=== PATIENT | female | born 1950 | race Caucasian/White ===

== ENCOUNTER 2016-12-13 17:14 | Emergency (ER) | payer BC ==
[~2016-12-13 17:14] MED LIST: CALC600T21 PO; COPA1INJ PO; METH2.5TA PO; MULTTAB PO; VALARIAN PO; [UNRECOGNIZED DRUG - OTHER] PO
[2016-12-13 18:59] LABS: CALCIUM OXALATE CRYSTALS SMALL
[2016-12-13] MEDS ORDERED: KETOROLAC 30 MG/ML VIAL (J1885) As Ordered ONE (19:13)
[2016-12-13] MEDS ORDERED: ONDANSETRON 4MG/2ML VIAL (J2405) As Ordered ONE (19:13)
--- NOTE | 2016-12-13 19:20 | REP ---
Clinical: Right-sided pain. Comparison: 10/07/2011. Findings: An 8 mm noncalcified nodule is identified in the periphery of the right lower lobe (image one). Visualized heart and pericardium are normal. Liver, spleen, pancreas, and bilateral adrenal glands are normal for noncontrast evaluation. The patient is status post cholecystectomy. The kidneys demonstrate right cortical scarring, bilateral nonobstructing renal calculi measuring up to 13 mm in the right kidney and 8 mm in left kidney without perinephric stranding, hydroureteronephrosis, or obstructing ureteral calculi. The enteric system is without obstruction. Mild circumferential mural thickening to the rectosigmoid suggest the possibility of colitis. Pelvis demonstrates normal bladder and age-appropriate uterus/adnexa. No ascites. No free air. No obvious adenopathy. Abdominal aorta without aneurysm. Musculoskeletal structures demonstrate degenerative changes without focal osseous abnormality. Impression: 1. Kidneys demonstrate right cortical scarring as well as bilateral nonobstructing calculi without obstructive uropathy. 2. Mural thickening to the rectosigmoid suggesting colitis and requiring correlation. 3. 8 mm noncalcified nodule in the periphery of the right lower lobe represents a new finding compared to [address] CT evaluation. Signed by Mikey Helm MD 12/13/2016 07:11 P
[2016-12-13 19:35] LABS: BASO % 0.5 % (0.0-1.0); EOS # 0.1 K/mm3 (0.0-0.50); EOS % 1.5 % (0.0-3.0); LARGE UNSTAINED CELL # 0.1 K/mm3 (0.0-0.4); LARGE UNSTAINED CELL % 2.2 % (0.0-4.0); LYMPH # 1.6 K/mm3 (1.5-4.5); LYMPH % 30.9 % (24.0-44.0); MEAN CORPUSCULAR HEMOGLOBIN 31.7 pg (27.0-33.0); MEAN CORPUSCULAR HGB CONC 34.7 g/dl (32.0-36.5); MEAN CORPUSCULAR VOLUME 91.4 fl (80.0-96.0); MONO # 0.3 K/mm3 (0.0-0.8); MONO % 5.9 % (0.0-5.0); NEUTROPHILS # 2.8 K/mm3 (1.8-7.7); PLATELET COUNT, AUTOMATED 281 k/mm3 (150-450); RED CELL DISTRIBUTION WIDTH 12.7 % (11.5-14.5); WHITE BLOOD COUNT 4.8 K/mm3 (4.0-10.0)
[2016-12-13] MEDS ORDERED: LevoFLOXacin/DEXTROSE 750 MG/150 ML BAG (J1956) As Ordered ONE (19:49)
[2016-12-13 19:50] LABS: ALBUMIN 4.3 GM/DL (3.2-5.2); ALBUMIN/GLOBULIN RATIO 1.39 (1.00-1.93); ALKALINE PHOSPHATASE 102 U/L (45-117); ALT/SGPT 24 U/L (12-78); ANION GAP 8 MEQ/L (8-16); AST/SGOT 16 U/L (15-37); BILIRUBIN,DIRECT < 0.1 MG/DL (0.0-0.2); BILIRUBIN,TOTAL 0.5 MG/DL (0.2-1.0); BLOOD UREA NITROGEN 17 MG/DL (7-18); CALCIUM LEVEL 9.5 MG/DL (8.8-10.2); CARBON DIOXIDE LEVEL 31 MEQ/L (21-32); CHLORIDE LEVEL 103 MEQ/L (98-107); CREATININE FOR GFR 0.73 MG/DL (0.55-1.02); GLOMERULAR FILTRATION RATE > 60.0 (>45); GLUCOSE, FASTING 97 MG/DL (80-110); POTASSIUM SERUM 3.8 MEQ/L (3.5-5.1); SODIUM LEVEL 142 MEQ/L (136-145); TOTAL PROTEIN 7.4 GM/DL (6.4-8.2)
[2016-12-13] MEDS ORDERED: ISOVUE-370 76% 100ML VIAL (Q9967) As Ordered ONE (20:30)
--- NOTE | 2016-12-13 21:30 | REPUSA ---
CLINICAL HISTORY: Lung nodule. TECHNIQUE: Multiple axial CT images were obtained through chest with IV contrast material. MPR fields l and sagittal sequences were obtained. COMMENTS: 6 mm right lower lobe nodule is noted. Left lower lobe scarring is seen. There is no evidence of pleural or parenchymal mass. There are no pleural effusions. There is no evid ence of hilar or mediastinal lymphadenopathy. The heart and great vessels are within normal limits. The visualized portions of the liver are of uniform attenuation without mass or defect. There is no i ntra or extrahepatic biliary ductal dilatation. The spleen is unremarkable. The visualized pancreas i s of normal contour and attenuation characteristics. There is no evidence of adrenal mass. The visual ized portions of the kidneys present no abnormalities. The bony structures are free of lytic or blastic lesions. Multilevel degenerative changes are seen in volving the thoracic spine. Scattered calcifications are seen involving the aorta and visualized gladis r branches compatible with atherosclerosis. No evidence for abnormal enhancement. IMPRESSION: 6 mm right lower lobe nodule. Comparison with prior studiies and establishing 2 year interval of sta bility is recommended. Consider short-term follow-up in 6 months as clinically warranted. No evidence of acute thoracic pathology. Thank you for your kind referral of this patient.
--- NOTE | 2016-12-13 21:50 | EDDOCDS ---
Physician Documentation [facility] Name: Addie Yanez Age: 66 yrs Sex: Female : 1950 Arrival Date: 12/13/2016 Time: 17:14 Bed I5 / M5 Private MD: Rob Giraldo M.D. Disposition: 12/13/16 21:36 Discharged to Home/Self Care. Impression: Urinary tract infection, site not specified - right pyelonephritis, Solitary pulmonary nodule - right lower lobe, 6mm. - Condition is Stable. - Discharge Instructions: Urinary Tract Infection, Antibiotic Use, [id number], Pulmonary Nodule. - Prescriptions for Cipro 500 mg Oral Tablet - take 1 tablet by ORAL route every 12 hours; 14 tablet. ZOFRAN ODT 4 mg - dissolve 1 tablet by ORAL route 4 times per day As needed do not chew, do not swallow whole; 10 tablet. - Medication Reconciliation, Local Pharmacy Hours form. - Follow up: Rbo Giraldo; When: Call to arrange an appointment; Reason: Recheck today's complaints, Continuance of care. - Problem is new. - Symptoms are unchanged. Historical: - Allergies: PENICILLINS; SULFA (SULFONAMIDES); - Home Meds: 1. methotrexate sodium 10 mg Oral tab 1 tab once wkly 2. Copaxone 40 mg/mL subcutaneous syrg 3 times per wk - PMHx: MS; Kidney stones; - PSHx: kidney stone removal; Cholecystectomy; vein stripping in left leg; Lithotripsy; - Social history: Smoking status: Patient states former smoker of tobacco. No barriers to communication noted, The patient speaks fluent Yakut, Speaks appropriately for age. - Family history: Not pertinent. - : The pt / caregiver states he / she is not on anticoagulants. Home medication list is obtained from the patient. - Exposure Risk Screening:: None identified. Vital Signs: 12/13 17:16 BP 128 / 64; Pulse 84; Resp 16; Temp 97.4(O); Pulse Ox 97% ; Weight 54.43 kg / 120 lbs; cmb Height 5 ft. 3 in. (160.02 cm); Pain 6/10; 21:40 BP 123 / 67; Pulse 89; Resp 18; Temp 98.0; Pulse Ox 98% ; Pain 3/10; ajs 17:16 Body Mass Index 21.26 (54.43 kg, 160.02 cm) cmb MDM: 18:38 NS 0.9% 1000 ml IV at bolus once ordered. mo1 18:38 Ondansetron 4 mg IVP once ordered. mo1 18:38 ketorolac 30 mg IVP once ordered. mo1 18:38 IV Saline Lock ordered. mo1 18:38 Undress patient appropriately for examination ordered. mo1 18:39 Basic Metabolic Profile Ordered. EDMS 18:39 CBC with Diff Ordered. EDMS 18:39 Lipase Ordered. EDMS 18:39 Liver Profile Ordered. EDMS 18:39 Urinalysis Ordered. EDMS 18:39 Urine Culture Ordered. EDMS 18:39 CT ABD & PELVIS: No Contrast Ordered. EDMS 18:39 NOTHING BY MOUTH+DIET ordered. EDMS 18:53 Financial registration complete. ks16 19:09 [facility] Payment Agreement was scanned into [employer] and attached to record. ks16 19:20 Urinalysis Reviewed. mo1 19:31 CT ABD & PELVIS: No Contrast Reviewed. mo1 19:39 -Blood Culture (Adults Only), peripheral from different site, or from device/port/PICC mo1 etc. if present ordered. 19:39 levofloxacin 750 mg IVPB once over 90 mins ordered. mo1 19:40 -Blood Culture Ordered. EDMS 19:40 CT Chest With Contrast Ordered. EDMS 19:41 -Blood Culture (Adults Only), peripheral from different site, or from device/port/PICC ajs etc. if present complete. 19:43 BLOOD CULTURES Ordered. EDMS 20:56 Basic Metabolic Profile Reviewed. mo1 20:57 CBC with Diff Reviewed. mo1 20:57 Lipase Reviewed. mo1 20:57 Liver Profile Reviewed. mo1 Administered Medications: 19:23 Drug: NS 0.9% 1000 ml [sodium chloride 0.9 % intravenous solution] Route: IV; Rate: ko2 bolus; Site: left antecubital; 21:38 Follow up: IV Status: Completed infusion; IV Intake: 1000ml ko2 19:23 Drug: Ondansetron 4 mg [ondansetron HCl 2 mg/mL intravenous solution (2 mL)] Route: ko2 IVP; Site: left antecubital; 19:23 Drug: ketorolac 30 mg [ketorolac 30 mg/mL (1 mL) injection solution (1 mL)] Route: IVP; ko2 Site: left antecubital; 19:56 Drug: levofloxacin 750 mg [levofloxacin 500 mg/100 mL in 5 % dextrose intravenous ko2 piggyback] Route: IVPB; Infused Over: 90 mins; Site: right antecubital; Signatures: Dispatcher [employer] Dali Goss Jane, RN RN [facility] Tony Wise PA PA [email or web address] Padmini Nguyen RN RN kc3 Silvana Franco, Reg Reg ks16 Madeleine Lozada RN ko2 The chart was reviewed and I authenticate all verbal orders and agree with the evaluation and treatment provided.Attachments: 19:09 [facility] Payment Agreement [email or web address] MTDD
--- NOTE | 2016-12-13 21:50 | EDDOCDS ---
Nurse's Notes [facility] Name: Addie Yanez Age: 66 yrs Sex: Female : 1950 Arrival Date: 12/13/2016 Time: 17:14 Bed I5 / M5 Private MD: Rob Giraldo M.D. Diagnosis: Urinary tract infection, site not specified-right pyelonephritis;Solitary pulmonary nodule-right lower lobe, 6mm Presentation: 12/13 17:17 Presenting complaint: Patient states: low back pain, fever, and nausea x 5 days. Adult kc3 Sepsis Screening: The patient does not have new or worsening altered mentation. Patient's respiratory rate is less than 22. Systolic blood pressure is greater than 100. Patient has a qSOFA score of 0- Negative Sepsis Screen. Suicide/Homicide risk assessment- the patient denies having any suicidal and/or homicidal ideations and does not present with any other emotional, behavioral or mental health complaints. Status: Patient is not a internal revenue service agent or dependent. Transition of care: patient was not received from another setting of care. 17:17 Acuity: ILIR Level 3 kc3 17:17 Method Of Arrival: Walkin/Carried/Asstd kc3 Triage Assessment: 17:19 General: Appears in no apparent distress, comfortable. Pain: Location: back Pain kc3 currently is 6 out of 10 on a pain scale. HIV screening NA for this visit Offered previously. GI: Reports nausea. Historical: - Allergies: PENICILLINS; SULFA (SULFONAMIDES); - Home Meds: 1. methotrexate sodium 10 mg Oral tab 1 tab once wkly 2. Copaxone 40 mg/mL subcutaneous syrg 3 times per wk - PMHx: MS; Kidney stones; - PSHx: kidney stone removal; Cholecystectomy; vein stripping in left leg; Lithotripsy; - Social history: Smoking status: Patient states former smoker of tobacco. No barriers to communication noted, The patient speaks fluent Venezuelan, Speaks appropriately for age. - Family history: Not pertinent. - : The pt / caregiver states he / she is not on anticoagulants. Home medication list is obtained from the patient. - Exposure Risk Screening:: None identified. Screenin:22 Screening information is obtained from the patient. Fall risk: No risks identified. ko2 Assistance ADL's: requires no assistance with activities of daily living. Abuse/DV Screen: The patient / caregiver reports he/she is: not in a situation that causes fear, pain or injury. Nutritional screening: No deficits noted. Advance Directives: Currently, there is no health care proxy. There is no active DNR order. There is no living will. There is no Power of Recreation Clerk. home support is adequate. Assessment: 19:21 General: Appears in no apparent distress, comfortable, Behavior is appropriate for age, ko2 cooperative. Pain: Location: back Pain currently is 6 out of 10 on a pain scale. Neurological: Level of Consciousness is awake, alert, Oriented to person, place, time. Respiratory: Airway is patent Respiratory effort is even, unlabored. Derm: Skin is normal. Musculoskeletal: Range of motion intact in all extremities. 20:28 General: Appears in no apparent distress, comfortable, Behavior is appropriate for age, ko2 cooperative. Neurological: Level of Consciousness is awake, alert, Oriented to person, place, time. Respiratory: Airway is patent Respiratory effort is even, unlabored. Derm: Skin is normal. 21:07 General: returned from CT, denies needs at present, at bedside, awaiting [facility] results, no visible distress, no new problems or complaints. 21:48 General: Appears in no apparent distress, comfortable, Behavior is appropriate for age, [facility] cooperative, reviewed discharge instructions with patient who denies further needs and states "I just want to get home", assisted to curb via wheelchair, driving. Vital Signs: 17:16 BP 128 / 64; Pulse 84; Resp 16; Temp 97.4(O); Pulse Ox 97% ; Weight 54.43 kg; Height 5 cmb ft. 3 in. (160.02 cm); Pain 6/10; 21:40 BP 123 / 67; Pulse 89; Resp 18; Temp 98.0; Pulse Ox 98% ; Pain 3/10; ajs 17:16 Body Mass Index 21.26 (54.43 kg, 160.02 cm) b Vitals: 17:16 Log In Time: December 13, 2016 at 17:14. b ED Course: 17:15 Patient visited by Savita Oswald. cmb 17:15 Patient moved to Waiting [facility] 17:16 Rob Giraldo is Private Physician. cmb 17:16 Patient moved to Pre RCE kc3 17:17 Triage Initiated kc3 17:31 Patient moved to Triage 3 mlb1 18:21 Tony Wise PA is PHCP. mo1 18:21 Dougie Melgar MD is Attending Physician. mo1 18:25 Patient visited by Tnoy Wise PA. mo1 18:39 Patient moved to I5 / M5 ms18 19:09 [facility] Payment Agreement was scanned into [employer] and attached to record. ks16 19:10 Madeleine Lozada,RN is Primary Nurse. ko2 19:10 Basic Metabolic Profile Sent. ko2 19:10 CBC with Diff Sent. ko2 19:10 Lipase Sent. ko2 19:11 Liver Profile Sent. ko2 19:11 Inserted saline lock: 20 gauge in left antecubital area and blood collected. The ko2 patient tolerated the procedure well. 19:23 Patient visited by Madeleine Lozada RN. ko2 19:25 CT ABD & PELVIS: No Contrast Returned. EDMS 20:25 Patient visited by Madeleine Lozada RN. ko2 21:07 The patient / caregiver is instructed regarding the plan of care and ED course. cjh Accompanied by Family Member, Patient has correct armband on for positive identification. Bed in low position. Call light in reach. Side rails up X2. 21:07 No procedures done that require assistance. Labs drawn. (by ED staff). Sent per order cj to lab. Labs/Blood culture drawn. 21:16 Patient visited by Tracee Duarte RN. [facility] 21:36 Rob Giraldo is Referral Physician. mo1 21:40 Patient visited by Dali Lopez. s 21:44 CT Chest With Contrast Returned. EDMS 21:48 Discontinued lock intact, bleeding controlled, pressure dressing applied, No cj redness/swelling at site. Administered Medications: 19:23 Drug: NS 0.9% 1000 ml [sodium chloride 0.9 % intravenous solution] Route: IV; Rate: ko2 bolus; Site: left antecubital; 21:38 Follow up: IV Status: Completed infusion; IV Intake: 1000ml ko2 19:23 Drug: Ondansetron 4 mg [ondansetron HCl 2 mg/mL intravenous solution (2 mL)] Route: ko2 IVP; Site: left antecubital; 19:23 Drug: ketorolac 30 mg [ketorolac 30 mg/mL (1 mL) injection solution (1 mL)] Route: IVP; ko2 Site: left antecubital; 19:56 Drug: levofloxacin 750 mg [levofloxacin 500 mg/100 mL in 5 % dextrose intravenous ko2 piggyback] Route: IVPB; Infused Over: 90 mins; Site: right antecubital; Intake: 21:38 IV: 1000.00ml; Total: 1000.00ml. ko2 Order Results: Lab Order: Basic Metabolic Profile; SPEC'M 12/13/16 19:08 Test: GLUCOSE, FASTING; Value: 97; Range: 80-110; Units: MG/DL; Status: F Test: BLOOD UREA NITROGEN; Value: 17; Range: 7-18; Units: MG/DL; Status: F Test: CREATININE FOR GFR; Value: 0.73; Range: 0.55-1.02; Units: MG/DL; Status: F Test: GLOMERULAR FILTRATION RATE; Value: > 60.0; Range: >45; Status: F Test: SODIUM LEVEL; Value: 142; Range: 136-145; Units: MEQ/L; Status: F Test: POTASSIUM SERUM; Value: 3.8; Range: 3.5-5.1; Units: MEQ/L; Status: F Test: CHLORIDE LEVEL; Value: 103; Range: 98-107; Units: MEQ/L; Status: F Test: CARBON DIOXIDE LEVEL; Value: 31; Range: 21-32; Units: MEQ/L; Status: F Test: ANION GAP; Value: 8; Range: 8-16; Units: MEQ/L; Status: F Test: CALCIUM LEVEL; Value: 9.5; Range: 8.8-10.2; Units: MG/DL; Status: F Test Note: ; Units are mL/min/1.73 m2 Chronic Kidney Disease Staging per NKF: Stage I & II GFR >=60 Normal to Mildly Decreased Stage III GFR 30-59 Moderately Decreased Stage IV GFR 15-29 Severely Decreased Stage V GFR <15 Very Little GFR Left ESRD GFR <15 on LENS AND FRAMES PRESCRIPTION CLERK Lab Order: CBC with Diff; SPEC'M 12/13/16 19:08 Test: WHITE BLOOD COUNT; Value: 4.8; Range: 4.0-10.0; Units: K/mm3; Status: F Test: RED BLOOD COUNT; Value: 4.69; Range: 4.00-5.40; Units: M/mm3; Status: F Test: HEMOGLOBIN; Value: 14.9; Range: 12.0-16.0; Units: g/dl; Status: F Test: HEMATOCRIT; Value: 42.8; Range: 36.0-47.0; Units: %; Status: F Test: MEAN CORPUSCULAR VOLUME; Value: 91.4; Range: 80.0-96.0; Units: fl; Status: F Test: MEAN CORPUSCULAR HEMOGLOBIN; Value: 31.7; Range: 27.0-33.0; Units: pg; Status: F Test: MEAN CORPUSCULAR HGB CONC; Value: 34.7; Range: 32.0-36.5; Units: g/dl; Status: F Test: RED CELL DISTRIBUTION WIDTH; Value: 12.7; Range: 11.5-14.5; Units: %; Status: F Test: PLATELET COUNT, AUTOMATED; Value: 281; Range: 150-450; Units: k/mm3; Status: F Test: NEUTROPHILS %; Value: 59.0; Range: 36.0-66.0; Units: %; Status: F Test: LYMPH %; Value: 30.9; Range: 24.0-44.0; Units: %; Status: F Test: MONO %; Value: 5.9; Range: 0.0-5.0; Abnormal: Above high normal; Units: %; Status: F Test: EOS %; Value: 1.5; Range: 0.0-3.0; Units: %; Status: F Test: BASO %; Value: 0.5; Range: 0.0-1.0; Units: %; Status: F Test: LARGE UNSTAINED CELL %; Value: 2.2; Range: 0.0-4.0; Units: %; Status: F Test: NEUTROPHILS #; Value: 2.8; Range: 1.8-7.7; Units: K/mm3; Status: F Test: LYMPH #; Value: 1.6; Range: 1.5-4.5; Units: K/mm3; Status: F Test: MONO #; Value: 0.3; Range: 0.0-0.8; Units: K/mm3; Status: F Test: EOS #; Value: 0.1; Range: 0.0-0.50; Units: K/mm3; Status: F Test: BASO #; Value: 0.0; Range: 0.0-0.2; Units: K/mm3; Status: F Test: LARGE UNSTAINED CELL #; Value: 0.1; Range: 0.0-0.4; Units: K/mm3; Status: F Lab Order: Lipase; [facility] 12/13/16 19:08 Test: LIPASE; Value: 87; Range: 73-393; Units: U/L; Status: F Lab Order: Liver Profile; [facility] 12/13/16 19:08 Test: AST/SGOT; Value: 16; Range: 15-37; Units: U/L; Status: F Test: ALT/SGPT; Value: 24; Range: 12-78; Units: U/L; Status: F Test: ALKALINE PHOSPHATASE; Value: 102; Range: 45-117; Units: U/L; Status: F Test: BILIRUBIN,TOTAL; Value: 0.5; Range: 0.2-1.0; Units: MG/DL; Status: F Test: BILIRUBIN,DIRECT; Value: < 0.1; Range: 0.0-0.2; Units: MG/DL; Status: F Test: TOTAL PROTEIN; Value: 7.4; Range: 6.4-8.2; Units: GM/DL; Status: F Test: ALBUMIN; Value: 4.3; Range: 3.2-5.2; Units: GM/DL; Status: F Test: ALBUMIN/GLOBULIN RATIO; Value: 1.39; Range: 1.00-1.93; Status: F Lab Order: Urinalysis; [facility] 12/13/16 18:46 Test: APPEARANCE, URINE; Value: CLEAR; Range: CLEAR; Status: F Test: COLOR, URINE; Value: YELLOW; Range: YELLOW; Status: F Test: PH,URINE; Value: 6.0; Range: 5.0-9.0; Units: UNITS; Status: F Test: SPECIFIC GRAVITY URINE AUTO; Value: 1.011; Range: 1.002-1.035; Status: F Test: PROTEIN, URINE AUTO; Value: NEGATIVE; Range: NEGATIVE; Units: mg/dL; Status: F Test: GLUCOSE, URINE (UA) AUTO; Value: NEGATIVE; Range: NEGATIVE; Units: mg/dL; Status: F Test: KETONE, URINE AUTO; Value: TRACE; Range: NEGATIVE; Abnormal: Above high normal; Units: mg/dL; Status: F Test: UROBILINOGEN, URINE AUTO; Value: 0.2; Range: 0.0-2.0; Units: mg/dL; Status: F Test: BILIRUBIN, URINE AUTO; Value: NEGATIVE; Range: NEGATIVE; Status: F Test: NITRITE, URINE AUTO; Value: NEGATIVE; Range: NEGATIVE; Status: F Test: LEUKOCYTE ESTERASE, URINE AUTO; Value: 2+; Range: NEGATIVE; Abnormal: Above high normal; Status: F Test: BLOOD, URINE BLOOD; Value: NEGATIVE; Range: NEGATIVE; Status: F Test: WBC, URINE AUTO; Value: 12; Range: 0-3; Abnormal: Above high normal; Units: /HPF; Status: F Test: RBC, URINE AUTO; Value: 2; Range: 0-3; Units: /HPF; Status: F Test: BACTERIA, URINE AUTO; Value: 1+; Range: NEGATIVE; Abnormal: Above high normal; Status: F Test: SQUAMOUS EPITHELIAL CELL UR AU; Value: 0; Range: 0-6; Units: /HPF; Status: F Test: MUCUS, URINE; Value: SMALL; Range: NEGATIVE; Status: F Test: HYALINE CAST, URINE AUTO; Value: 0; Range: 0-1; Units: /LPF; Status: F Test: CALCIUM OXALATE CRYSTALS; Value: SMALL; Range: NONE; Status: F Radiology Order: CT ABD & PELVIS: No Contrast Test: CT ABD & PELVIS: No Contrast REASON FOR EXAMINATION: Renal colic; Clinical: Right-sided pain.; ; Comparison: 10/07/2011.; ; Findings:; An 8 mm noncalcified nodule is identified in the periphery of the right lower; lobe (image one). Visualized heart and pericardium are normal.; ; Liver, spleen, pancreas, and bilateral adrenal glands are normal for noncontrast; evaluation. The patient is status post cholecystectomy. The kidneys demonstrate; right cortical scarring, bilateral nonobstructing renal calculi measuring up to; 13 mm in the right kidney and 8 mm in left kidney without perinephric stranding,; hydroureteronephrosis, or obstructing ureteral calculi. The enteric system is; without obstruction. Mild circumferential mural thickening to the rectosigmoid; suggest the possibility of colitis. Pelvis demonstrates normal bladder and; age-appropriate uterus/adnexa. No ascites. No free air. No obvious adenopathy.; Abdominal aorta without aneurysm. Musculoskeletal structures demonstrate; degenerative changes without focal osseous abnormality.; ; Impression:; 1. Kidneys demonstrate right cortical scarring as well as bilateral; nonobstructing calculi without obstructive uropathy.; 2. Mural thickening to the rectosigmoid suggesting colitis and requiring; correlation.; 3. 8 mm noncalcified nodule in the periphery of the right lower lobe represents; a new finding compared to [address] evaluation.; ; ; Signed by; Mikey Helm MD 12/13/2016 07:11 P; Radiology Order: CT Chest With Contrast Test: CT Chest With Contrast REASON FOR EXAMINATION: RLL 8mm nodule; ; CLINICAL HISTORY: Lung nodule.; TECHNIQUE: Multiple axial CT images were obtained through chest with IV contrast material. MPR fields; l and sagittal sequences were obtained.; COMMENTS:; 6 mm right lower lobe nodule is noted. Left lower lobe scarring is seen.; There is no evidence of pleural or parenchymal mass. There are no pleural effusions. There is no evid; ence of hilar or mediastinal lymphadenopathy. The heart and great vessels are within normal limits.; The visualized portions of the liver are of uniform attenuation without mass or defect. There is no i; ntra or extrahepatic biliary ductal dilatation. The spleen is unremarkable. The visualized pancreas i; s of normal contour and attenuation characteristics. There is no evidence of adrenal mass. The visual; ized portions of the kidneys present no abnormalities.; The bony structures are free of lytic or blastic lesions. Multilevel degenerative changes are seen in; volving the thoracic spine. Scattered calcifications are seen involving the aorta and visualized gladis; r branches compatible with atherosclerosis.; No evidence for abnormal enhancement.; IMPRESSION:; 6 mm right lower lobe nodule. Comparison with prior studiies and establishing 2 year interval of sta; bility is recommended. Consider short-term follow-up in 6 months as clinically warranted.; No evidence of acute thoracic pathology.; Thank you for your kind referral of this patient.; ; ; Outcome: 21:07 CT Study completed. [facility] 21:36 Discharge ordered by Provider. mo1 21:48 Discharge Assessment: Patient awake, alert and oriented x 3. No cognitive and/or [facility] functional deficits noted. Patient verbalized understanding of disposition instructions. patient administered narcotics - no. The following High Risk Discharge criteria are identified: None. Discharged to home via wheelchair, with significant other. Condition: good Condition: stable Condition: improved. Discharge instructions given to patient, Instructed on discharge instructions, follow up and referral plans. medication usage, Demonstrated understanding of instructions, medications, Pt was receptive of discharge instructions/ teaching. Prescriptions given X 2. Property :Personal belongings accompany Pt. 21:50 Patient left the ED. [facility] Signatures: Dispatcher [employer] EDTony Ramos RN RN mlb1 Dali Lopez Jane, RN RN [facility] Savita Oswald Michael, SAMI PA mo1 Madeleine Lozada,RN RN [id number] Padmini Frances RN RN [id number] Padmini Nguyen,MUSHTAQ RN [id number] Silvana Franco, Reg Reg ks16 [facility]
--- NOTE | 2016-12-15 22:51 | EDDOCDS ---
Physician Documentation [facility] Name: Addie Yanez Age: 66 yrs Sex: Female : 1950 Arrival Date: 12/13/2016 Time: 17:14 Bed I5 / M5 Private MD: Rob Giraldo M.D. Disposition: 12/13/16 21:36 Discharged to Home/Self Care. Impression: Urinary tract infection, site not specified - right pyelonephritis, Solitary pulmonary nodule - right lower lobe, 6mm. - Condition is Stable. - Discharge Instructions: Urinary Tract Infection, Antibiotic Use, Kgas-eg-[id number], Pulmonary Nodule. - Prescriptions for Cipro 500 mg Oral Tablet - take 1 tablet by ORAL route every 12 hours; 14 tablet. ZOFRAN ODT 4 mg - dissolve 1 tablet by ORAL route 4 times per day As needed do not chew, do not swallow whole; 10 tablet. - Medication Reconciliation, Local Pharmacy Hours form. - Follow up: Rob Giraldo; When: Call to arrange an appointment; Reason: Recheck today's complaints, Continuance of care. - Problem is new. - Symptoms are unchanged. Historical: - Allergies: PENICILLINS; SULFA (SULFONAMIDES); - Home Meds: 1. methotrexate sodium 10 mg Oral tab 1 tab once wkly 2. Copaxone 40 mg/mL subcutaneous syrg 3 times per wk - PMHx: MS; Kidney stones; - PSHx: kidney stone removal; Cholecystectomy; vein stripping in left leg; Lithotripsy; - Social history: Smoking status: Patient states former smoker of tobacco. No barriers to communication noted, The patient speaks fluent Maori, Speaks appropriately for age. - Family history: Not pertinent. - : The pt / caregiver states he / she is not on anticoagulants. Home medication list is obtained from the patient. - Exposure Risk Screening:: None identified. Vital Signs: 12/13 17:16 BP 128 / 64; Pulse 84; Resp 16; Temp 97.4(O); Pulse Ox 97% ; Weight 54.43 kg / 120 lbs; cmb Height 5 ft. 3 in. (160.02 cm); Pain 6/10; 21:40 BP 123 / 67; Pulse 89; Resp 18; Temp 98.0; Pulse Ox 98% ; Pain 3/10; ajs 17:16 Body Mass Index 21.26 (54.43 kg, 160.02 cm) cmb MDM: 18:38 NS 0.9% 1000 ml IV at bolus once ordered. mo1 18:38 Ondansetron 4 mg IVP once ordered. mo1 18:38 ketorolac 30 mg IVP once ordered. mo1 18:38 IV Saline Lock ordered. mo1 18:38 Undress patient appropriately for examination ordered. mo1 18:39 Basic Metabolic Profile Ordered. EDMS 18:39 CBC with Diff Ordered. EDMS 18:39 Lipase Ordered. EDMS 18:39 Liver Profile Ordered. EDMS 18:39 Urinalysis Ordered. EDMS 18:39 Urine Culture Ordered. EDMS 18:39 CT ABD & PELVIS: No Contrast Ordered. EDMS 18:39 NOTHING BY MOUTH+DIET ordered. EDMS 18:53 Financial registration complete. ks16 19:09 [facility] Payment Agreement was scanned into [employer] and attached to record. ks16 19:20 Urinalysis Reviewed. mo1 19:31 CT ABD & PELVIS: No Contrast Reviewed. mo1 19:39 -Blood Culture (Adults Only), peripheral from different site, or from device/port/PICC mo1 etc. if present ordered. 19:39 levofloxacin 750 mg IVPB once over 90 mins ordered. mo1 19:40 -Blood Culture Ordered. EDMS 19:40 CT Chest With Contrast Ordered. EDMS 19:41 -Blood Culture (Adults Only), peripheral from different site, or from device/port/PICC ajs etc. if present complete. 19:43 BLOOD CULTURES Ordered. EDMS 20:56 Basic Metabolic Profile Reviewed. mo1 20:57 CBC with Diff Reviewed. mo1 20:57 Lipase Reviewed. mo1 20:57 Liver Profile Reviewed. mo1 12/14 09:17 T-Sheet-- Draft Copy was scanned into [employer] and attached to record. [facility] 12/15 14:18 Disposition: radiology report faxed to Dr. Giraldo. sd1 Administered Medications: 12/13 19:23 Drug: NS 0.9% 1000 ml [sodium chloride 0.9 % intravenous solution] Route: IV; Rate: ko2 bolus; Site: left antecubital; 21:38 Follow up: IV Status: Completed infusion; IV Intake: 1000ml ko2 19:23 Drug: Ondansetron 4 mg [ondansetron HCl 2 mg/mL intravenous solution (2 mL)] Route: ko2 IVP; Site: left antecubital; 19:23 Drug: ketorolac 30 mg [ketorolac 30 mg/mL (1 mL) injection solution (1 mL)] Route: IVP; ko2 Site: left antecubital; 19:56 Drug: levofloxacin 750 mg [levofloxacin 500 mg/100 mL in 5 % dextrose intravenous ko2 piggyback] Route: IVPB; Infused Over: 90 mins; Site: right antecubital; Signatures: Dispatcher [employer] EDNE Lidya Grey MD MD sd1 Dali Lopez JaneRN RN chrissy Tony Wise PA PA mo1 Crane, Kelsi, RN RN kc3 Silvana Franco, Reg Reg ks16 Lidya Light Kari RN ko2 The chart was reviewed and I authenticate all verbal orders and agree with the evaluation and treatment provided.Attachments: 19:09 [facility] Payment Agreement ks16 12/14 09:17 T-Sheet-- Draft Copy [facility] Chart Complete MTDD
--- NOTE | 2016-12-15 22:51 | EDDOCDS ---
Nurse's Notes [facility] Name: Addie Yanez Age: 66 yrs Sex: Female : 1950 Arrival Date: 12/13/2016 Time: 17:14 Bed I5 / M5 Private MD: Rob Giraldo M.D. Diagnosis: Urinary tract infection, site not specified-right pyelonephritis;Solitary pulmonary nodule-right lower lobe, 6mm Presentation: 12/13 17:17 Presenting complaint: Patient states: low back pain, fever, and nausea x 5 days. Adult kc3 Sepsis Screening: The patient does not have new or worsening altered mentation. Patient's respiratory rate is less than 22. Systolic blood pressure is greater than 100. Patient has a qSOFA score of 0- Negative Sepsis Screen. Suicide/Homicide risk assessment- the patient denies having any suicidal and/or homicidal ideations and does not present with any other emotional, behavioral or mental health complaints. Status: Patient is not a aircraft servicer or dependent. Transition of care: patient was not received from another setting of care. 17:17 Acuity: ILIR Level 3 kc3 17:17 Method Of Arrival: Walkin/Carried/Asstd kc3 Triage Assessment: 17:19 General: Appears in no apparent distress, comfortable. Pain: Location: back Pain kc3 currently is 6 out of 10 on a pain scale. HIV screening NA for this visit Offered previously. GI: Reports nausea. Historical: - Allergies: PENICILLINS; SULFA (SULFONAMIDES); - Home Meds: 1. methotrexate sodium 10 mg Oral tab 1 tab once wkly 2. Copaxone 40 mg/mL subcutaneous syrg 3 times per wk - PMHx: MS; Kidney stones; - PSHx: kidney stone removal; Cholecystectomy; vein stripping in left leg; Lithotripsy; - Social history: Smoking status: Patient states former smoker of tobacco. No barriers to communication noted, The patient speaks fluent Cymro, Speaks appropriately for age. - Family history: Not pertinent. - : The pt / caregiver states he / she is not on anticoagulants. Home medication list is obtained from the patient. - Exposure Risk Screening:: None identified. Screenin:22 Screening information is obtained from the patient. Fall risk: No risks identified. ko2 Assistance ADL's: requires no assistance with activities of daily living. Abuse/DV Screen: The patient / caregiver reports he/she is: not in a situation that causes fear, pain or injury. Nutritional screening: No deficits noted. Advance Directives: Currently, there is no health care proxy. There is no active DNR order. There is no living will. There is no Power of Level Designer. home support is adequate. Assessment: 19:21 General: Appears in no apparent distress, comfortable, Behavior is appropriate for age, ko2 cooperative. Pain: Location: back Pain currently is 6 out of 10 on a pain scale. Neurological: Level of Consciousness is awake, alert, Oriented to person, place, time. Respiratory: Airway is patent Respiratory effort is even, unlabored. Derm: Skin is normal. Musculoskeletal: Range of motion intact in all extremities. 20:28 General: Appears in no apparent distress, comfortable, Behavior is appropriate for age, ko2 cooperative. Neurological: Level of Consciousness is awake, alert, Oriented to person, place, time. Respiratory: Airway is patent Respiratory effort is even, unlabored. Derm: Skin is normal. 21:07 General: returned from CT, denies needs at present, at bedside, awaiting [facility] results, no visible distress, no new problems or complaints. 21:48 General: Appears in no apparent distress, comfortable, Behavior is appropriate for age, [facility] cooperative, reviewed discharge instructions with patient who denies further needs and states "I just want to get home", assisted to curb via wheelchair, driving. Vital Signs: 17:16 BP 128 / 64; Pulse 84; Resp 16; Temp 97.4(O); Pulse Ox 97% ; Weight 54.43 kg; Height 5 cmb ft. 3 in. (160.02 cm); Pain 6/10; 21:40 BP 123 / 67; Pulse 89; Resp 18; Temp 98.0; Pulse Ox 98% ; Pain 3/10; ajs 17:16 Body Mass Index 21.26 (54.43 kg, 160.02 cm) b Vitals: 17:16 Log In Time: December 13, 2016 at 17:14. b ED Course: 17:15 Patient visited by Savita Oswald. cmb 17:15 [facility] to [facility] 17:16 Rob Giraldo is Private Physician. cmb 17:16 Patient moved to Pre RCE kc3 17:17 Triage Initiated kc3 17:31 Patient moved to Triage 3 mlb1 18:21 Tony Wise PA is PHCP. mo1 18:21 Dougie Melgar MD is Attending Physician. mo1 18:25 Patient visited by Tony Wise PA. mo1 18:39 Patient moved to I5 / M5 ms18 19:09 [facility] Payment Agreement was scanned into [employer] and attached to record. ks16 19:10 Madeleine Lozada,RN is Primary Nurse. ko2 19:10 Basic Metabolic Profile Sent. ko2 19:10 CBC with Diff Sent. ko2 19:10 Lipase Sent. ko2 19:11 Liver Profile Sent. ko2 19:11 Inserted saline lock: 20 gauge in left antecubital area and blood collected. The ko2 patient tolerated the procedure well. 19:23 Patient visited by Madeleine Lozada RN. ko2 19:25 CT ABD & PELVIS: No Contrast Returned. EDMS 20:25 Patient visited by Madeleine Lozada RN. ko2 21:07 The patient / caregiver is instructed regarding the plan of care and ED course. cjh Accompanied by Family Member, Patient has correct armband on for positive identification. Bed in low position. Call light in reach. Side rails up X2. 21:07 No procedures done that require assistance. Labs drawn. (by ED staff). Sent per order cj to lab. Labs/Blood culture drawn. 21:16 Patient visited by Tracee Duarte RN. [facility] 21:36 Rob Giraldo is Referral Physician. mo1 21:40 Patient visited by Dali Lopez. ajs 21:44 CT Chest With Contrast Returned. EDMS 21:48 Discontinued lock intact, bleeding controlled, pressure dressing applied, No cjh redness/swelling at site. 12/14 09:17 T-Sheet-- Draft Copy was scanned into [employer] and attached to record. seh Administered Medications: 12/13 19:23 Drug: NS 0.9% 1000 ml [sodium chloride 0.9 % intravenous solution] Route: IV; Rate: ko2 bolus; Site: left antecubital; 21:38 Follow up: IV Status: Completed infusion; IV Intake: 1000ml ko2 19:23 Drug: Ondansetron 4 mg [ondansetron HCl 2 mg/mL intravenous solution (2 mL)] Route: ko2 IVP; Site: left antecubital; 19:23 Drug: ketorolac 30 mg [ketorolac 30 mg/mL (1 mL) injection solution (1 mL)] Route: IVP; ko2 Site: left antecubital; 19:56 Drug: levofloxacin 750 mg [levofloxacin 500 mg/100 mL in 5 % dextrose intravenous ko2 piggyback] Route: IVPB; Infused Over: 90 mins; Site: right antecubital; Intake: 21:38 IV: 1000.00ml; Total: 1000.00ml. ko2 Order Results: Lab Order: Basic Metabolic Profile; SPEC'M 12/13/16 19:08 Test: GLUCOSE, FASTING; Value: 97; Range: 80-110; Units: MG/DL; Status: F Test: BLOOD UREA NITROGEN; Value: 17; Range: 7-18; Units: MG/DL; Status: F Test: CREATININE FOR GFR; Value: 0.73; Range: 0.55-1.02; Units: MG/DL; Status: F Test: GLOMERULAR FILTRATION RATE; Value: > 60.0; Range: >45; Status: F Test: SODIUM LEVEL; Value: 142; Range: 136-145; Units: MEQ/L; Status: F Test: POTASSIUM SERUM; Value: 3.8; Range: 3.5-5.1; Units: MEQ/L; Status: F Test: CHLORIDE LEVEL; Value: 103; Range: 98-107; Units: MEQ/L; Status: F Test: CARBON DIOXIDE LEVEL; Value: 31; Range: 21-32; Units: MEQ/L; Status: F Test: ANION GAP; Value: 8; Range: 8-16; Units: MEQ/L; Status: F Test: CALCIUM LEVEL; Value: 9.5; Range: 8.8-10.2; Units: MG/DL; Status: F Test Note: ; Units are mL/min/1.73 m2 Chronic Kidney Disease Staging per NKF: Stage I & II GFR >=60 Normal to Mildly Decreased Stage III GFR 30-59 Moderately Decreased Stage IV GFR 15-29 Severely Decreased Stage V GFR <15 Very Little GFR Left ESRD GFR <15 on [employer] Lab Order: CBC with Diff; SPEC'M 12/13/16 19:08 Test: WHITE BLOOD COUNT; Value: 4.8; Range: 4.0-10.0; Units: K/mm3; Status: F Test: RED BLOOD COUNT; Value: 4.69; Range: 4.00-5.40; Units: M/mm3; Status: F Test: HEMOGLOBIN; Value: 14.9; Range: 12.0-16.0; Units: g/dl; Status: F Test: HEMATOCRIT; Value: 42.8; Range: 36.0-47.0; Units: %; Status: F Test: MEAN CORPUSCULAR VOLUME; Value: 91.4; Range: 80.0-96.0; Units: fl; Status: F Test: MEAN CORPUSCULAR HEMOGLOBIN; Value: 31.7; Range: 27.0-33.0; Units: pg; Status: F Test: MEAN CORPUSCULAR HGB CONC; Value: 34.7; Range: 32.0-36.5; Units: g/dl; Status: F Test: RED CELL DISTRIBUTION WIDTH; Value: 12.7; Range: 11.5-14.5; Units: %; Status: F Test: PLATELET COUNT, AUTOMATED; Value: 281; Range: 150-450; Units: k/mm3; Status: F Test: NEUTROPHILS %; Value: 59.0; Range: 36.0-66.0; Units: %; Status: F Test: LYMPH %; Value: 30.9; Range: 24.0-44.0; Units: %; Status: F Test: MONO %; Value: 5.9; Range: 0.0-5.0; Abnormal: Above high normal; Units: %; Status: F Test: EOS %; Value: 1.5; Range: 0.0-3.0; Units: %; Status: F Test: BASO %; Value: 0.5; Range: 0.0-1.0; Units: %; Status: F Test: LARGE UNSTAINED CELL %; Value: 2.2; Range: 0.0-4.0; Units: %; Status: F Test: NEUTROPHILS #; Value: 2.8; Range: 1.8-7.7; Units: K/mm3; Status: F Test: LYMPH #; Value: 1.6; Range: 1.5-4.5; Units: K/mm3; Status: F Test: MONO #; Value: 0.3; Range: 0.0-0.8; Units: K/mm3; Status: F Test: EOS #; Value: 0.1; Range: 0.0-0.50; Units: K/mm3; Status: F Test: BASO #; Value: 0.0; Range: 0.0-0.2; Units: K/mm3; Status: F Test: LARGE UNSTAINED CELL #; Value: 0.1; Range: 0.0-0.4; Units: K/mm3; Status: F Lab Order: Lipase; [facility] 12/13/16 19:08 Test: LIPASE; Value: 87; Range: 73-393; Units: U/L; Status: F Lab Order: Liver Profile; [facility] 12/13/16 19:08 Test: AST/SGOT; Value: 16; Range: 15-37; Units: U/L; Status: F Test: ALT/SGPT; Value: 24; Range: 12-78; Units: U/L; Status: F Test: ALKALINE PHOSPHATASE; Value: 102; Range: 45-117; Units: U/L; Status: F Test: BILIRUBIN,TOTAL; Value: 0.5; Range: 0.2-1.0; Units: MG/DL; Status: F Test: BILIRUBIN,DIRECT; Value: < 0.1; Range: 0.0-0.2; Units: MG/DL; Status: F Test: TOTAL PROTEIN; Value: 7.4; Range: 6.4-8.2; Units: GM/DL; Status: F Test: ALBUMIN; Value: 4.3; Range: 3.2-5.2; Units: GM/DL; Status: F Test: ALBUMIN/GLOBULIN RATIO; Value: 1.39; Range: 1.00-1.93; Status: F Lab Order: Urinalysis; [facility] 12/13/16 18:46 Test: APPEARANCE, URINE; Value: CLEAR; Range: CLEAR; Status: F Test: COLOR, URINE; Value: YELLOW; Range: YELLOW; Status: F Test: PH,URINE; Value: 6.0; Range: 5.0-9.0; Units: UNITS; Status: F Test: SPECIFIC GRAVITY URINE AUTO; Value: 1.011; Range: 1.002-1.035; Status: F Test: PROTEIN, URINE AUTO; Value: NEGATIVE; Range: NEGATIVE; Units: mg/dL; Status: F Test: GLUCOSE, URINE (UA) AUTO; Value: NEGATIVE; Range: NEGATIVE; Units: mg/dL; Status: F Test: KETONE, URINE AUTO; Value: TRACE; Range: NEGATIVE; Abnormal: Above high normal; Units: mg/dL; Status: F Test: UROBILINOGEN, URINE AUTO; Value: 0.2; Range: 0.0-2.0; Units: mg/dL; Status: F Test: BILIRUBIN, URINE AUTO; Value: NEGATIVE; Range: NEGATIVE; Status: F Test: NITRITE, URINE AUTO; Value: NEGATIVE; Range: NEGATIVE; Status: F Test: LEUKOCYTE ESTERASE, URINE AUTO; Value: 2+; Range: NEGATIVE; Abnormal: Above high normal; Status: F Test: BLOOD, URINE BLOOD; Value: NEGATIVE; Range: NEGATIVE; Status: F Test: WBC, URINE AUTO; Value: 12; Range: 0-3; Abnormal: Above high normal; Units: /HPF; Status: F Test: RBC, URINE AUTO; Value: 2; Range: 0-3; Units: /HPF; Status: F Test: BACTERIA, URINE AUTO; Value: 1+; Range: NEGATIVE; Abnormal: Above high normal; Status: F Test: SQUAMOUS EPITHELIAL CELL UR AU; Value: 0; Range: 0-6; Units: /HPF; Status: F Test: MUCUS, URINE; Value: SMALL; Range: NEGATIVE; Status: F Test: HYALINE CAST, URINE AUTO; Value: 0; Range: 0-1; Units: /LPF; Status: F Test: CALCIUM OXALATE CRYSTALS; Value: SMALL; Range: NONE; Status: F Lab Order: Urine Culture; SPEC'M 12/13/16 18:46 Test: URINE CULTURE; Value: <EXTERNAL COMMENT eCWMed> FULL REPORT IN LAB NOTES (eCW and Medent).; Status: F Test: URINE CULTURE; Value: URINE CULTURE RESULT NO GROWTH; Status: F Lab Order: -Blood Culture; SPEC'M 12/13/16 19:55 Test: BLOOD CULTURE; Value: No growth after 24 hours . All specimens observed; Status: F Test: BLOOD CULTURE; Value: for 5 days. Results final at that time.; Status: F Test: BLOOD CULTURE; Value: No Growth after 48 hours. All Specimens observed; Status: F Test: BLOOD CULTURE; Value: for 7 days. Results final at that time.; Status: F Lab Order: BLOOD CULTURES; SPEC'M 12/13/16 19:55 Test: BLOOD CULTURE; Value: No growth after 24 hours . All specimens observed; Status: F Test: BLOOD CULTURE; Value: for 5 days. Results final at that time.; Status: F Test: BLOOD CULTURE; Value: No Growth after 48 hours. All Specimens observed; Status: F Test: BLOOD CULTURE; Value: for 7 days. Results final at that time.; Status: F Radiology Order: CT ABD & PELVIS: No Contrast Test: CT ABD & PELVIS: No Contrast REASON FOR EXAMINATION: Renal colic; Clinical: Right-sided pain.; ; Comparison: 10/07/2011.; ; Findings:; An 8 mm noncalcified nodule is identified in the periphery of the right lower; lobe (image one). Visualized heart and pericardium are normal.; ; Liver, spleen, pancreas, and bilateral adrenal glands are normal for noncontrast; evaluation. The patient is status post cholecystectomy. The kidneys demonstrate; right cortical scarring, bilateral nonobstructing renal calculi measuring up to; 13 mm in the right kidney and 8 mm in left kidney without perinephric stranding,; hydroureteronephrosis, or obstructing ureteral calculi. The enteric system is; without obstruction. Mild circumferential mural thickening to the rectosigmoid; suggest the possibility of colitis. Pelvis demonstrates normal bladder and; age-appropriate uterus/adnexa. No ascites. No free air. No obvious adenopathy.; Abdominal aorta without aneurysm. Musculoskeletal structures demonstrate; degenerative changes without focal osseous abnormality.; ; Impression:; 1. Kidneys demonstrate right cortical scarring as well as bilateral; nonobstructing calculi without obstructive uropathy.; 2. Mural thickening to the rectosigmoid suggesting colitis and requiring; correlation.; 3. 8 mm noncalcified nodule in the periphery of the right lower lobe represents; a new finding compared to [address] evaluation.; ; ; Signed by; Mikey Helm MD 12/13/2016 07:11 P; Radiology Order: CT Chest With Contrast Test: CT Chest With Contrast REASON FOR EXAMINATION: RLL 8mm nodule; ; CLINICAL HISTORY: Lung nodule.; TECHNIQUE: Multiple axial CT images were obtained through chest with IV contrast material. MPR fields; l and sagittal sequences were obtained.; COMMENTS:; 6 mm right lower lobe nodule is noted. Left lower lobe scarring is seen.; There is no evidence of pleural or parenchymal mass. There are no pleural effusions. There is no evid; ence of hilar or mediastinal lymphadenopathy. The heart and great vessels are within normal limits.; The visualized portions of the liver are of uniform attenuation without mass or defect. There is no i; ntra or extrahepatic biliary ductal dilatation. The spleen is unremarkable. The visualized pancreas i; s of normal contour and attenuation characteristics. There is no evidence of adrenal mass. The visual; ized portions of the kidneys present no abnormalities.; The bony structures are free of lytic or blastic lesions. Multilevel degenerative changes are seen in; volving the thoracic spine. Scattered calcifications are seen involving the aorta and visualized gladis; r branches compatible with atherosclerosis.; No evidence for abnormal enhancement.; IMPRESSION:; 6 mm right lower lobe nodule. Comparison with prior studiies and establishing 2 year interval of sta; bility is recommended. Consider short-term follow-up in 6 months as clinically warranted.; No evidence of acute thoracic pathology.; Thank you for your kind referral of this patient.; ; ; Outcome: 21:07 CT Study completed. [facility] 21:36 Discharge ordered by Provider. mo1 21:48 Discharge Assessment: Patient awake, alert and oriented x 3. No cognitive and/or [facility] functional deficits noted. Patient verbalized understanding of disposition instructions. patient administered narcotics - no. The following High Risk Discharge criteria are identified: None. Discharged to home via wheelchair, with significant other. Condition: good Condition: stable Condition: improved. Discharge instructions given to patient, Instructed on discharge instructions, follow up and referral plans. medication usage, Demonstrated understanding of instructions, medications, Pt was receptive of discharge instructions/ teaching. Prescriptions given X 2. Property :Personal belongings accompany Pt. 21:50 Patient left the ED. [facility] Signatures: Dispatcher [employer] EDTony Ramos RN RN [id number] Dali Lopez JaneRN RN [facility] Savita Oswald Michael, PA PA [email or web address] Madeleine Lozada,RN RN [id number] Padmini Frances,RN RN [id number] Padmini Nguyen,RN RN kc3 Silvana Franco, Reg Reg ks16 Kuldeep, Lidya puri Chart Complete MTDD
--- NOTE | 2016-12-15 22:51 | EDDOCDS ---
Physician Documentation [facility], [place] Name: Addie Yanez Age: 66 yrs Sex: Female : 1950 Arrival Date: 12/13/2016 Time: 17:14 Bed I5 / M5 Private MD: Rob Giraldo M.D. Disposition: 12/13/16 21:36 Discharged to Home/Self Care. Impression: Urinary tract infection, site not specified - right pyelonephritis, Solitary pulmonary nodule - right lower lobe, 6mm. - Condition is Stable. - Discharge Instructions: Urinary Tract Infection, Antibiotic Use, Tpfs-po-Gpnq, Pulmonary Nodule. - Prescriptions for Cipro 500 mg Oral Tablet - take 1 tablet by ORAL route every 12 hours; 14 tablet. ZOFRAN ODT 4 mg - dissolve 1 tablet by ORAL route 4 times per day As needed do not chew, do not swallow whole; 10 tablet. - Medication Reconciliation, Local Pharmacy Hours form. - Follow up: Rob Giraldo; When: Call to arrange an appointment; Reason: Recheck today's complaints, Continuance of care. - Problem is new. - Symptoms are unchanged. Historical: - Allergies: PENICILLINS; SULFA (SULFONAMIDES); - Home Meds: 1. methotrexate sodium 10 mg Oral tab 1 tab once wkly 2. Copaxone 40 mg/mL subcutaneous syrg 3 times per wk - PMHx: MS; Kidney stones; - PSHx: kidney stone removal; Cholecystectomy; vein stripping in left leg; Lithotripsy; - Social history: Smoking status: Patient states former smoker of tobacco. No barriers to communication noted, The patient speaks fluent Slovak, Speaks appropriately for age. - Family history: Not pertinent. - : The pt / caregiver states he / she is not on anticoagulants. Home medication list is obtained from the patient. - Exposure Risk Screening:: None identified. Vital Signs: 12/13 17:16 BP 128 / 64; Pulse 84; Resp 16; Temp 97.4(O); Pulse Ox 97% ; Weight 54.43 kg / 120 lbs; cmb Height 5 ft. 3 in. (160.02 cm); Pain 6/10; 21:40 BP 123 / 67; Pulse 89; Resp 18; Temp 98.0; Pulse Ox 98% ; Pain 3/10; ajs 17:16 Body Mass Index 21.26 (54.43 kg, 160.02 cm) cmb MDM: 18:38 NS 0.9% 1000 ml IV at bolus once ordered. mo1 18:38 Ondansetron 4 mg IVP once ordered. mo1 18:38 ketorolac 30 mg IVP once ordered. mo1 18:38 IV Saline Lock ordered. mo1 18:38 Undress patient appropriately for examination ordered. mo1 18:39 Basic Metabolic Profile Ordered. EDMS 18:39 CBC with Diff Ordered. EDMS 18:39 Lipase Ordered. EDMS 18:39 Liver Profile Ordered. EDMS 18:39 Urinalysis Ordered. EDMS 18:39 Urine Culture Ordered. EDMS 18:39 CT ABD & PELVIS: No Contrast Ordered. EDMS 18:39 NOTHING BY MOUTH+DIET ordered. EDMS 18:53 Financial registration complete. [email or web address] 19:09 [facility] Payment Agreement was scanned into wedgies and attached to record. [email or web address] 19:20 Urinalysis Reviewed. mo1 19:31 CT ABD & PELVIS: No Contrast Reviewed. mo1 19:39 -Blood Culture (Adults Only), peripheral from different site, or from device/port/PICC mo1 etc. if present ordered. 19:39 levofloxacin 750 mg IVPB once over 90 mins ordered. mo1 19:40 -Blood Culture Ordered. EDMS 19:40 CT Chest With Contrast Ordered. EDMS 19:41 -Blood Culture (Adults Only), peripheral from different site, or from device/port/PICC ajs etc. if present complete. 19:43 BLOOD CULTURES Ordered. EDMS 20:56 Basic Metabolic Profile Reviewed. mo1 20:57 CBC with Diff Reviewed. mo1 20:57 Lipase Reviewed. mo1 20:57 Liver Profile Reviewed. mo1 12/14 09:17 T-Sheet-- Draft Copy was scanned into wedgies and attached to record. [facility] 12/15 14:18 Disposition: radiology report faxed to Dr. Giraldo. sd1 Administered Medications: 12/13 19:23 Drug: NS 0.9% 1000 ml [sodium chloride 0.9 % intravenous solution] Route: IV; Rate: ko2 bolus; Site: left antecubital; 21:38 Follow up: IV Status: Completed infusion; IV Intake: 1000ml ko2 19:23 Drug: Ondansetron 4 mg [ondansetron HCl 2 mg/mL intravenous solution (2 mL)] Route: ko2 IVP; Site: left antecubital; 19:23 Drug: ketorolac 30 mg [ketorolac 30 mg/mL (1 mL) injection solution (1 mL)] Route: IVP; ko2 Site: left antecubital; 19:56 Drug: levofloxacin 750 mg [levofloxacin 500 mg/100 mL in 5 % dextrose intravenous ko2 piggyback] Route: IVPB; Infused Over: 90 mins; Site: right antecubital; Signatures: Dispatcher [employer] EDND Lidya Grey MD MD sd1 Dali Lopez JaneRN RN chrissy Tony Wise PA PA mo1 Crane, Kelsi, RN RN kc3 Silvana Franco, Reg Reg ks16 Lidya Light Kari RN ko2 The chart was reviewed and I authenticate all verbal orders and agree with the evaluation and treatment provided.Attachments: 19:09 [facility] Payment Agreement [email or web address] 12/14 09:17 T-Sheet-- Draft Copy [facility] Chart Complete MTDD
== END 2016-12-13 21:50 | disposition home or self-care (01) ==
LOC: M ED 17:14
DX: N30.00 Acute cystitis without hematuria (principal); R91.1 Solitary pulmonary nodule; N10 Acute pyelonephritis; G35 Multiple sclerosis; Z87.442 Personal history of urinary calculi; Z87.891 Personal history of nicotine dependence; Z79.899 Other long term (current) drug therapy; Z88.0 Allergy status to penicillin; Z88.2 Allergy status to sulfonamides
CPT/HCPCS: 36415; 71260; 74176; 80048; 80076; 81001; 83690; 85025; 87040; 87086; 96361; 96374; 96375; 99284; J1885; J1956; J2405; Q9967

== ENCOUNTER → 2018-08-02 | Outpatient (REF) | payer BC ==
[2018-08-02 17:32] LABS: C REACTIVE PROTEIN QUANTITATIV < 0.30 MG/DL (0.00-0.30)
[2018-08-02 17:32] LABS: RHEUMATOID FACTOR QUANT < 10.0 IU/ML (<15.0)
[2018-08-05 00:09] LABS: ANTINUCLEAR ANTIBODIES DIRECT Negative (Negative); Lyme Disease IgG/IgM Antibodie <0.91 ISR (0.00-0.90); Lyme Disease IgM Ab Quantitati <0.80 index (0.00-0.79)
== END ==
LOC: M LAB REF 17:05
DX: M25.50 Pain in unspecified joint (principal)
CPT/HCPCS: 86140

== ENCOUNTER → 2019-06-08 | Outpatient (CLI) | payer MEDICARE, BC ==
[~2019-06-08] MED LIST changes: -CALC600T21 PO; +CALC600T60 PO; +METH2.5T48 PO; -METH2.5TA PO
[2019-06-08 13:51] LABS: BASO % 0.7 % (0.0-1.0); EOS # 0.1 10^3/uL (0.0-0.50); EOS % 0.9 % (0.0-3.0); HEMOGLOBIN 14.1 g/dl (12.0-15.5); LYMPH # 1.7 10^3/uL (1.5-4.5); LYMPH % 32.5 % (24.0-44.0); MEAN CORPUSCULAR HEMOGLOBIN 31.4 pg (27.0-33.0); MEAN CORPUSCULAR HGB CONC 33.6 g/dl (32.0-36.5); MEAN CORPUSCULAR VOLUME 93.5 fl (80.0-96.0); MONO # 0.3 10^3/uL (0.0-0.8); MONO % 5.6 % (0.0-5.0); NEUTROPHILS # 3.2 10^3/uL (1.8-7.7); NEUTROPHILS % 60.1 % (36.0-66.0); PLATELET COUNT, AUTOMATED 253 10^3/uL (150-450); RED BLOOD COUNT 4.49 10^6/uL (4.00-5.40); WHITE BLOOD COUNT 5.4 10^3/uL (4.0-10.0)
[2019-06-08 14:34] LABS: ALT/SGPT 20 U/L (12-78); BILIRUBIN,DIRECT 0.1 MG/DL (0.0-0.2); BILIRUBIN,TOTAL 0.5 MG/DL (0.2-1.0); BLOOD UREA NITROGEN 21 MG/DL (7-18); CARBON DIOXIDE LEVEL 31 MEQ/L (21-32); CHLORIDE LEVEL 106 MEQ/L (98-107); GLOMERULAR FILTRATION RATE > 60.0 (>45); GLUCOSE, FASTING 91 MG/DL (70-100); SODIUM LEVEL 143 MEQ/L (136-145); TOTAL PROTEIN 7.1 GM/DL (6.4-8.2)
[2019-06-08 14:45] LABS: HEPATITIS B SURFACE ANTIBODY NEGATIVE (POSITIVE)
[2019-06-08 14:56] LABS: HEPATITIS B SURFACE ANTIGEN NEGATIVE (NEGATIVE)
[2019-06-08 15:23] LABS: HEPATITIS B CORE ANTIBODY IGM NEGATIVE (NEGATIVE)
[2019-06-08 15:25] LABS: HEPATITIS A ANTIBODY IGM NEGATIVE (NEGATIVE)
== END ==
LOC: M LAB 12:39
PROVIDERS: ATTEND Nurse Practitioner
DX: G35 Multiple sclerosis (principal); R11.0 Nausea; Z79.899 Other long term (current) drug therapy

== ENCOUNTER → 2021-07-27 | Outpatient (CLI) | payer MEDICARE, BC ==
[~2021-07-27] MED LIST changes: +ACET-897 PO; +ATOR1TAB19 PO; +MELA10CA2 PO; +VITA-243 PO; +VITMTA PO; +ZINC1TAB2 PO
== END ==
LOC: M LABSMTC 11:36
PROVIDERS: ATTEND Anesthesiology
DX: Z01.812 Encounter for preprocedural laboratory examination (principal); Z20.822 Contact with and (suspected) exposure to COVID-19

== ENCOUNTER 2021-08-01 11:23 | Day surgery (SDC) | payer MEDICARE, BC ==
[~2021-08-01] VITALS: Ht 160 cm; Wt 56.7 kg
[~2021-08-01 11:23] MED LIST changes: +NS 1,000 ML IV ONE
--- OUTSIDE RECORDS SUMMARY | 2021-08-01 11:27 | CCD | Continuity of Care Document ---
Author Author Addie ZEE PAConstanceC Organization Unknown Address [address] [place] [address] Phone [phone] Care Team Providers Care Surgical Services Assistant Name Role Phone Rob Giraldo MD [facility] [phone] Problems Description No Active Problems Social History Type Date Description Comments Sex Unknown ETOH Use Denies alcohol use Tobacco Use Start: Unknown End: Unknown Patient is a former smoker quit 35 years ago Allergies, Adverse Reactions, Alerts Active Allergies Criticality Reaction | Severity Comments Date Penicillin Unable to assess criticality 04/03/2015 Medications Active Medications SIG Qnty Indications Ordering Provide r Date Lidoderm 5% Patches use as directed on 12 hours off 12 hours up to 3 patches a day 60units 719.41 Anthony Prajapati MD 04/03/2015 Copaxone 40mg/ml Soln Prefill Syri nge Uad, SQ 3x's weekly injection Unknown 00/00/0 000 Prozac 10mg Capsules 1 by mouth every day Unknown Methotrexate Sodium 3mg Solution R ec uad,weekly Unknown Immunizations Description No Information Available Vital Signs Date Vital Result Comment 03/15/2021 10:24am Body Temperature 96.9 F Height 61.5 inches 5'1.50" Weight 120.00 lb BMI (Body Mass Index) 22.3 kg/m2 04/03/2015 9:27am Body Temperature 98.6 F Height 63 inches 5'3" Weight 125.00 lb BMI (Body Mass Index) 22.1 kg/m2 Results Description No Information Available Procedures Date Code Description Status 06/18/2021 06109 Office/Outpatient Established Mo d MDM 30-39 Min Completed 06/18/2021 99157 Inject/Drain Joint/Bursa Major C ompleted 03/15/2021 60925 Office/Outpatient New Moderate M DM 45-59 Minutes Completed 03/15/2021 17760 X-Ray Shoulder Complete Complete d 03/15/202187864 Inject/Drain Joint/Bursa Major C ompleted Medical Devices Description No Information Available Encounters Type Date Location Provider Dx Diagnosis Office Visit 06/18/2021 11:15a Lori Zee PA-C M1 9.011 Primary osteoarthritis, right shoulder M19.012 Primary osteoarthritis, left shoulder M75.101 Unsp rotatr-cuff tear/ruptr of right shoulder, not trauma M75.102 Unsp rotatr-cuff tear/ruptr of left shoulder, not trauma Office Visit 03/15/2021 9:30a Lori Rosa MD M19.01 1 Primary osteoarthritis, right shoulder M19.012 Primary osteoarthritis, left shoulder M75.101 Unsp rotatr-cuff tear/ruptr of right shoulder, not trauma M75.102 Unsp rotatr-cuff tear/ruptr of left shoulder, not trauma Assessments Date Code Description Provider 06/18/2021 M19.011 Primary osteoarthritis, right sh chaya Zee PA-C 06/18/2021 M19.012 Primary osteoarthritis, left ronak azarXie PA-C 06/18/2021 M75.101 Unspecified rotator cuff tear or rupture of right shoulder, not specified as traumatic Ramon Zee PA-C 06/18/2021 M75.102 Unspecified rotator cuff tear or rupture of left shoulder, not specified as traumatic Ramon Zee PA-C 03/15/2021 M19.011 Primary osteoarthritis, right sh chaya Roas MD 03/15/2021 M19.012 Primary osteoarthritis, left ronak les Rosa MD 03/15/2021 M75.101 Unspecified rotator cuff tear or rupture of right shoulder, not specified as traumatic Hernesto Rosa MD 03/15/2021 M75.102 Unspecified rotator cuff tear or rupture of left shoulder, not specified as traumatic Hernesto Rosa MD Plan of Treatment Future Appointment(s):* 07/09/2021 3:15 pm - Ramon Zee PA-C at [place] 06/18/2021 - Ramon Zee PA-C* M19.011 Primary osteoarthritis, right shoulder* Follow up:* 3 week otoniel shoulder recheck w/BMS * M19.012 Primary osteoarthritis, left shoulder * M75.101 Unspecified rotator cuff tear or rupture of right shoulder, not specified as traumatic * M75.102 Unspecified rotator cuff tear or rupture of left shoulder, not specified as traumatic Functional Status Description No Information Available Mental Status Description No Information Available Referrals Description No Information Available
--- OUTSIDE RECORDS SUMMARY | 2021-08-01 11:27 | CCD | Continuity of Care Document ---
Author Author Addie ELLIS RI Organization Unknown Address [address], [address] [place] [address] Phone [phone] Care Team Providers Care Rope Machine Setter Name Role Phone Rob Giraldo M.D. AUT[facility] [phone] Problems Description No Information Available Social History Type Date Description Comments Sex Unknown ETOH Use Denies alcohol use Recreational Drug Use Denies Drug Use Tobacco Use Start: Unknown End: Unknown Patient is a former smoker 1 PPD FOR 10 YEARS QUIT 1977 Allergies, Adverse Reactions, Alerts Active Allergies Reaction Severity Comments Date Penicillin V RASH 03/25/2021 Sulfa VOMITING 03/25/2021 Medications Active Medications SIG Qnty Indications Ordering Provide r Date Lipitor 10mg Tablets 1 qd Unknown Copaxone 40mg/ml Soln Prefill Syri nge 3 Times A Week Unknown Melatonin 5mg Capsules 1 tab by mouth at bedtime Unknown Multivitamin Adult (Minerals) Tab lets 1 tab by mouth every day Unknown 0 Vitamin D-3 125mcg (5000 Ut) Tablets 1 qd Unknown Vitamin C 1000mg Tablets 1 by mouth every day Unknown Immunizations Description No Information Available Vital Signs Date Vital Result Comment 05/13/2021 10:04am BP Systolic 137 mmHg BP Diastolic 76 mmHg Heart Rate 63 /min Height 62 inches 5'2" Weight 125.00 lb BMI (Body Mass Index) 22.9 kg/m2 [place] Body Weight 110 lb Weight 56.700 kg BSA (Body Surface Area) 1.57 m2 Results Description No Information Available Procedures Date Code Description Status 05/13/2021 00967 Office/Outpatient New Moderate M DM 45-59 Minutes Completed Medical Devices Description No Information Available Encounters Type Date Location Provider Dx Diagnosis Office Visit 05/13/2021 9:45a [facility] SAMI Schreiber Z12.11 Encounter for screening for malignant ne oplasm of colon Z80.0 Family history of malignant neoplasm of digestive organs R10.9 Unspecified abdominal pain Assessments Date Code Description Provider 05/13/2021 Z12.11 Encounter for screening for brittany gnant neoplasm of colon SAMI Price 05/13/2021 Z80.0 Family history of malignant neop lasm of digestive organs SAMI Price 05/13/2021 R10.9 Unspecified abdominal pain SAMI Price Plan of Treatment No Information Available Functional Status Description No Information Available Mental Status Description No Information Available Referrals Description No Information Available
--- OUTSIDE RECORDS SUMMARY | 2021-08-01 11:27 | CCD | Continuity of Care Document ---
Author Author Lab Schedule, Addie Cui Organization Unknown Address [address] [place] [address] Phone Unavailable Care Team Providers Care Lean Process Deployment Consultant Name Role Phone Rob Giraldo MD [facility] [phone] Parish Floyd MD [facility] [phone] Santos Lambert JR, MD [facility] [phone] Problems Active Problems Provider Date Multiple sclerosis Onset: Kidney stone Onset: Social History Type Date Description Comments Sex Unknown ETOH Use Denies alcohol use Tobacco Use Start: Unknown End: Unknown Patient is a former smoker 1 PPD x 5yrs, Quit in her early 30's Allergies, Adverse Reactions, Alerts Active Allergies Criticality Reaction | Severity Comments Date Penicillins Unable to assess criticality Moderate as a child 11/22/2013 Sulfa (Sulfonamide Antibiotics) Unable to assess criticality Mild, Nausea N/V 12/03/2011 Medications Active Medications SIG Qnty Indications Ordering Provide r Date Alcohol Swabs 70% Pads to test blood sugars twice a day and as needed 200units Rob Giraldo M.D. 03/13/2021 Copaxone 40mg/ml Soln Prefill Syri nge 1 inj biw - tiw 12Unspecified Rob Giraldo M.D. 03/13/2021 Miralax 17GM/Scoop Powder use 17grams 1-2 times a day for constipation in juice or water. 30Oz Rob Giraldo M.D. 05/10/2020 Melatonin 3mg Capsules 1 every night at bedtime 30caps Rob Giraldo M.D. 11/08/2019 Lipitor 10mg Tablets 1 by mouth every day 90tabs Rob Giraldo M.D. 06/07/2019 Vitamin D-3 5000Unit Tablets one every day by mouth Rob Giraldo M.D. 07/09/2015 Folic Acid 1mg Tablets 1 by mouth every day Rob Giraldo M.D. 07/09/2015 Multivitamins Capsules 1 by mouth every day Rob Giraldo M.D. 07/09/2015 Vitamin C 500mg Capsules ever y day Rob Giraldo M.D. 07/09/2015 Medications Administered in Office Medication SIG Qnty Indications Ordering Provider Date Covid-19 vaccine, Unspecified Inj ection Unknown 12/19/2020 Covid-19 vaccine, Unspecified Inj ection Unknown 11/23/2020 Administration Of Flu Vaccine Inj ection Rob Giraldo M.D. 08/02/2018 Immunizations CPT Code Status Date Vaccine Lot # 46810 Given 08/02/2018 Influenza Virus Vaccine, Quadrivalent ([id number]), Derived From Cell [id number] Given 08/05/2016 Fluvirin Virus Vaccine [id number] [id number] Given 07/19/2007 Influenza Virus Vaccine [id number] Refused 12/15/2012 Influenza Virus Vaccine Vital Signs Date Vital Result Comment 03/13/2021 1:00pm BP Systolic 120 mmHg BP Diastolic 80 mmHg Heart Rate 71 /min Height 63 inches 5'3" Weight 120.00 lb staited weight O2 % BldC Oximetry 96 % RM Air BMI (Body Mass Index) 21.3 kg/m2 05/10/2020 9:27am BP Systolic 114 mmHg BP Diastolic 72 mmHg Heart Rate 68 /min Weight 120.00 lb stated by patient Results Test Acquired Date Facility Test Result H/L Range Note Laboratory test finding 03/12/2021 [facility] isabel montero [facility] [employer]: [place] [address] [phone] Vitamin D 25-Hydroxy 56.6 ng/ml 24.0 - 80.0 1 Comprehensive Chem Profile 03/12/2021 [facility] [employer] [facility]: [place] [address] [phone] Glucose 93 mg/dL 74 - 99 2 BUN 20 mg/dL High 7 - 18 Creatinine 0.5 mg/dL Low 0.6 - 1.3 Sodium 143 mEq/L 136 - 145 Potassium 4.3 mEq/L 3.5 - 5.1 Chloride 103 mEq/L 98 - 107 Carbon Dioxide 33 mEq/L High 21 - 32 Calcium 9.8 mg/dL 8.5 - 10.1 Alk. Phosphatase 110 mg/dL 46 - 116 Total Bilirubin 0.5 mg/dL 0.2 - 1.0 Ast (Sgot) 21 U/L 15 - 37 Alt (SGPT) 37 U/L 12 - 78 Albumin 4.2 g/dL 3.4 - 5.0 Total Protein 7.3 g/dL 6.4 - 8.2 A/G Ratio 1.35 CALC 1.00 - 1.90 GFR >= 60 mL/min >60 GFR >= 60 mL/min >60 3 Lipid Profile 03/12/2021 [facility]astic: [place] [address] [phone] Cholesterol 237 mg/dL High 131 - 200 Triglycerides 95 mg/dL 30 - 150 HDL Cholesterol 73 mg/dL High 35 - 60 LDL (Calculated) 145 CALC 50 - 159 1 This test was performed [employer] Vitamin D immunoassay kit. Values obtained with different assay methods should not be used interchangeably. 2 100-125 mg/dL PRE-DIABET ES/FASTING >126 mg/dL DIABETES/FASTING 3 CHRONIC KIDNEY DISEASE STAGI NG PER NKF STAGE I & II GFR >= 60 NORMAL TO MILDLY DECREASED STAGE III GFR 30-59 MODERATELY DECREASED STAGE IV GFR 15-29 SEVERELY DECREASED STAGE V GFR <15 VERY LITTLE GFR LEFT ESRD GFR <15 ON [place] WAXER Procedures Date Code Description Status 03/13/2021 89128 Office/Outpatient Established Mo d MDM 30-39 Min Completed 03/13/2021 90783 EKG/Interpretation & Report Comp leted 10/26/2017 [id number] Mammogram Completed 04/30/2016 [id number] Mammogram Completed 08/30/2015 [id number] Colonoscopy Completed Medical Devices Description No Information Available Encounters Type Date Location Provider Dx Diagnosis Office Visit 03/13/2021 1:30p [facility] G35 Multiple sclerosis E78.00 Pure hypercholesterolemia, u nspecified K21.9 Gastro-esophageal reflux dis ease without esophagitis J44.9 Chronic obstructive pulmonar y disease, unspecified N20.0 Calculus of kidney G47.00 Insomnia, unspecified E55.9 Vitamin D deficiency, unspec ified M25.511 Pain in right shoulder M25.512 Pain in left shoulder R68.84 Jaw pain Assessments Date Code Description Provider 03/13/2021 G35 Multiple sclerosis Rob blackmon M.D. 03/13/2021 E78.00 Pure hypercholesterolemia, unspe cified Rob Giraldo M.D. 03/13/2021 K21.9 Gastro-esophageal reflux disease without esophagitis Rob Giraldo M.D. 03/13/2021 J44.9 Chronic obstructive pulmonary di sease, unspecified Rob Giraldo M.D. 03/13/2021 N20.0 Calculus of kidney Rob blackmon M.D. 03/13/2021 G47.00 Insomnia, unspecified Rob berry M.D. 03/13/2021 E55.9 Vitamin D deficiency, unspecifie d Rob Giraldo M.D. 03/13/2021 M25.511 Pain in right shoulder Rob Giraldo M.D. 03/13/2021 M25.512 Pain in left shoulder Rob berry M.D. 03/13/2021 R68.84 Jaw pain Rob Giraldo M.D. 03/12/2021 E78.00 Pure hypercholesterolemia, unspe cified Rob Giraldo M.D. 03/12/2021 E78.00 Pure hypercholesterolemia, unspe cified Lab Schedule 03/12/2021 E55.9 Vitamin D deficiency, unspecifie d Rob Giraldo M.D. 03/12/2021 E55.9 Vitamin D deficiency, unspecifie d Lab Schedule Plan of Treatment Future Appointment(s):* 09/04/2021 1:30 pm - [facility] 03/13/2021 - Rob Giraldo M.D.* G35 Multiple sclerosis * E78.00 Pure hypercholesterolemia, unspecified * K21.9 Gastro-esophageal reflux disease without esophagitis * J44.9 Chronic obstructive pulmonary disease, unspecified * N20.0 Calculus of kidney * G47.00 Insomnia, unspecified * E55.9 Vitamin D deficiency, unspecified * M25.511 Pain in right shoulder * M25.512 Pain in left shoulder * R68.84 Jaw pain * * Comments:* 1. Multiple sclerosis: Chronic. She spends most of her life in a wheelchair and depends on her for assistance. She has tried many medications without success. She will continue to follow with Dr. Floyd and let me know if I can assist her in any way.2. Hypercholesterolemia: Significantly increased cholesterol and LDL, although HDL is protective. We discussed limiting the usage of cheese.3. GERD without esophagitis: Return of symptoms without PPI and we discussed in detail about this. She will let me know if she wants to start PPI. We will monitor. 4. COPD: Mild. I have reviewed prior CT scan results. She will continue to use rescue inhaler as needed.5. Calculus of kidney: No recent issues. She was followed by Dr. Lawson at [facility] and will follow up as needed.6. Insomnia: Doing generally well on melatonin, will continue and monitor.7. Vitamin D deficiency: Normal vitamin D level. She is well supplemented, will continue and monitor.8. Pain in unspecified shoulder: Stable. Education was done. She will let me know if her symptoms worsen. We will monitor.9. Jaw pain: Checked EKG and no evidence of infarct, will monitor self for symptoms and if present will have see cardiology. Ongoing cares: We have obtained an EKG today. Patient is referred to Dr. Santos Lambert for follow up colonoscopy due to family history of colon cancer in both parents and her last colonoscopy was in 2014. I am going to see her again in 6 months with CMP, lipids and TSH. If she has new problems or issues sooner she will let us know. Functional Status Description No Information Available Mental Status Description No Information Available Referrals Refer to Reason for Referral Status Appt Date Santos Lambert JR, MD CONSULT FOR SCREENING COLONOSCOPY Patient Notified 04/01/2021 [facility] [address] [id number] [phone]
--- OUTSIDE RECORDS SUMMARY | 2021-08-01 11:27 | CCD | Continuity of Care Document ---
Author Author Addie ZEE PAConstanceC Organization Unknown Address [address] [place] [address] Phone [phone] Care Team Providers Care Soft Sugar Supervisor Name Role Phone Rob Giraldo MD [facility] [phone] Problems Description No Active Problems Social History Type Date Description Comments Sex Unknown ETOH Use Denies alcohol use Tobacco Use Start: Unknown End: Unknown Patient is a former smoker quit 35 years ago Allergies, Adverse Reactions, Alerts Active Allergies Criticality Reaction | Severity Comments Date Penicillin Unable to assess criticality 04/03/2015 sulfa drugs Unable to assess criticality 06/18/2021 Medications Active Medications SIG Qnty Indications Ordering Provide r Date Copaxone 40mg/ml Soln Prefill Syri nge Uad, SQ 3x's weekly injection Unknown 0 000 Immunizations Description No Information Available Vital Signs Date Vital Result Comment 03/15/2021 10:24am Body Temperature 96.9 F Height 61.5 inches 5'1.50" Weight 120.00 lb BMI (Body Mass Index) 22.3 kg/m2 04/03/2015 9:27am Body Temperature 98.6 F Height 63 inches 5'3" Weight 125.00 lb BMI (Body Mass Index) 22.1 kg/m2 Results Description No Information Available Procedures Date Code Description Status 06/18/202188034 Inject/Drain Joint/Bursa Major C ompleted 03/15/2021 82972 Office/Outpatient New Moderate M DM 45-59 Minutes Completed 03/15/2021 22256 X-Ray Shoulder Complete Complete d 03/15/202127906 Inject/Drain Joint/Bursa Major C ompleted Medical Devices Description No Information Available Encounters Type Date Location Provider Dx Diagnosis Office Visit 06/18/2021 11:15a [place] Ramon Zee PA-C M1 9.011 Primary osteoarthritis, right shoulder M19.012 Primary osteoarthritis, left shoulder M75.101 Unsp rotatr-cuff tear/ruptr of right shoulder, not trauma M75.102 Unsp rotatr-cuff tear/ruptr of left shoulder, not trauma Office Visit 03/15/2021 9:30a [place] Hernesto Rosa MD M19.01 1 Primary osteoarthritis, right shoulder M19.012 Primary osteoarthritis, left shoulder M75.101 Unsp rotatr-cuff tear/ruptr of right shoulder, not trauma M75.102 Unsp rotatr-cuff tear/ruptr of left shoulder, not trauma Assessments Date Code Description Provider 06/18/2021 M19.011 Primary osteoarthritis, right sh chaya Zee PA-C 06/18/2021 M19.012 Primary osteoarthritis, left ronak les Zee PA-C 06/18/2021 M75.101 Unspecified rotator cuff tear or rupture of right shoulder, not specified as traumatic Ramon Zee PA-C 06/18/2021 M75.102 Unspecified rotator cuff tear or rupture of left shoulder, not specified as traumatic Ramon Zee PA-C 03/15/2021 M19.011 Primary osteoarthritis, right chaya Rosa MD 03/15/2021 M19.012 Primary osteoarthritis, left [facility] les Rosa MD 03/15/2021 M75.101 Unspecified rotator cuff tear or rupture of right shoulder, not specified as traumatic Hernesto Rosa MD 03/15/2021 M75.102 Unspecified rotator cuff tear or rupture of left shoulder, not specified as traumatic Hernesto Rosa MD Plan of Treatment Future Appointment(s):* 07/09/2021 3:15 pm - Ramon Zee PA-C at [place] 06/18/2021 - Ramon Zee PA-C* M19.011 Primary [...]
--- OUTSIDE RECORDS SUMMARY | 2021-08-01 11:27 | CCD | Continuity of Care Document ---
Author Author Addie ZEE PAConstanceC Organization Unknown Address [address] [place] [address] Phone [phone] Care Team Providers Care Supervisor Dry Cleaning Name Role Phone Rob Giraldo MD [facility] [phone] Problems Description No Active Problems Social History [...] Available Procedures Date Code Description Status 06/18/2021 26322 Office/Outpatient Established Mo d MDM 30-39 Min Completed 06/18/2021 54409 Inject/Drain Joint/Bursa Major C ompleted 03/15/2021 73581 Office/Outpatient New Moderate M DM 45-59 Minutes Completed 03/15/2021 58645 X-Ray Shoulder Complete Complete d 03/15/202127507 Inject/Drain Joint/Bursa Major C ompleted Medical Devices [...] 03/15/2021 M19.011 Primary osteoarthritis, right sh chaya Rosa MD 03/15/2021 M19.012 Primary osteoarthritis, left ronak les Rosa MD 03/15/2021 M75.101 Unspecified rotator cuff tear or rupture of right shoulder, not specified as traumatic Hernesto Rosa MD 03/15/2021 M75.102 Unspecified rotator cuff tear or rupture of left shoulder, not specified as traumatic Hernesto Rosa MD Plan of Treatment Future Appointment(s):* 07/09/2021 3:15 pm - Ramon Zee PA-C at [place] 06/18/2021 - Ramon Zee PA-C* M19.011 Primary [...]
--- OUTSIDE RECORDS SUMMARY | 2021-08-01 11:28 | CCD ---
Author Author [facility] Organization [facility] Address Unknown Phone Unavailable Care Team Providers Care Wildlife Control Agent Name Role Phone Ema Rosa MD Unavailable Unavailable Ema Rosa MD Unavailable Unavailable Ema Rosa MD Unavailable Unavailable Ema Rosa MD Unavailable Unavailable Ema Rosa MD Unavailable Unavailable Ema Rosa MD Unavailable Unavailable Ema Rosa MD Unavailable Unavailable Ema Rosa MD Unavailable Unavailable Ema Rosa MD Unavailable Unavailable Ema Rosa MD Unavailable Unavailable Ema Rosa MD Unavailable Unavailable Leo Giraldo MD Unavailable Unavailable Leo Giraldo MD Unavailable Unavailable Leo Giraldo MD Unavailable Unavailable Leo Giraldo MD Unavailable Unavailable Leo Giraldo MD Unavailable Unavailable Leo Giraldo MD Unavailable Unavailable Leo Giraldo MD Unavailable Unavailable Leo Giraldo MD Unavailable Unavailable Leo Giraldo MD Unavailable Unavailable Leo Giraldo MD Unavailable Unavailable Leo Giraldo MD Unavailable Unavailable Leo Giraldo MD Unavailable Unavailable Leo Giraldo MD Unavailable Unavailable Leo Giraldo MD Unavailable Unavailable Leo Giraldo MD Unavailable Unavailable Leo Giraldo MD Unavailable Unavailable Leo Giraldo MD Unavailable Unavailable Leo Giraldo MD Unavailable Unavailable Leo Giraldo MD Unavailable Unavailable Leo Giraldo MD Unavailable Unavailable Leo Giraldo MD Unavailable Unavailable Leo Giraldo MD Unavailable Unavailable Leo Giraldo MD Unavailable Unavailable Leo Giraldo MD Unavailable Unavailable Leo Giraldo MD Unavailable Unavailable Leo Giraldo MD Unavailable Unavailable Leo Giraldo MD Unavailable Unavailable Leo Giraldo MD Unavailable Unavailable Leo Giraldo MD Unavailable Unavailable Leo Giraldo MD Unavailable Unavailable Leo Giraldo MD Unavailable Unavailable Leo Giraldo MD Unavailable Unavailable Leo Giraldo MD Unavailable Unavailable Leo Giraldo MD Unavailable Unavailable Leo Giraldo MD Unavailable Unavailable Leo Giraldo MD Unavailable Unavailable Leo Giraldo MD Unavailable Unavailable Leo Giraldo MD Unavailable Unavailable Leo Giraldo MD Unavailable Unavailable Leo Giraldo MD Unavailable Unavailable Leo Giraldo MD Unavailable Unavailable Leo Giraldo MD Unavailable Unavailable Leo Giraldo MD Unavailable Unavailable Leo Giraldo MD Unavailable Unavailable Leo Giraldo MD Unavailable Unavailable Leo Giraldo MD Unavailable Unavailable Leo Giraldo MD Unavailable Unavailable Leo Giraldo MD Unavailable Unavailable Leo Giraldo MD Unavailable Unavailable Leo Giraldo MD Unavailable Unavailable Leo Giraldo MD Unavailable Unavailable Leo Giraldo MD Unavailable Unavailable Leo Giraldo MD Unavailable Unavailable Leo Giraldo MD Unavailable Unavailable Leo Giraldo MD Unavailable Unavailable Leo Giraldo MD Unavailable Unavailable Leo Giraldo MD Unavailable Unavailable Leo Giraldo MD Unavailable Unavailable Leo Giraldo MD Unavailable Unavailable Leo Giraldo MD Unavailable Unavailable Leo Giraldo MD Unavailable Unavailable Leo Giraldo MD Unavailable Unavailable Leo Giraldo MD Unavailable Unavailable Leo Giraldo MD Unavailable Unavailable Leo Giraldo MD Unavailable Unavailable Leo Giraldo MD Unavailable Unavailable Leo Giraldo MD Unavailable Unavailable Leo Giraldo MD Unavailable Unavailable Leo Giraldo MD Unavailable Unavailable Leo Giraldo MD Unavailable Unavailable Leo Giraldo MD Unavailable Unavailable Leo Giraldo MD Unavailable Unavailable Leo Giraldo MD Unavailable Unavailable Leo Giraldo MD Unavailable Unavailable Leo Giraldo MD Unavailable Unavailable Leo Giraldo MD Unavailable Unavailable Leo Giraldo MD Unavailable Unavailable See Zee PA Unavailable Unavailable See Zee PA Unavailable Unavailable See Zee PA Unavailable Unavailable See Zeeatt PA Unavailable Unavailable ZeeSee fowleratt PA Unavailable Unavailable ZeeSee fowleratt PA Unavailable Unavailable ZeeSee fowleratt PA Unavailable Unavailable Zee, See Kongatt PA Unavailable Unavailable Zee, M Luannatt PA Unavailable Unavailable Zee, M Luannatt PA Unavailable Unavailable Zee, M Luannatt PA Unavailable Unavailable Zee, M Luannatt PA Unavailable Unavailable Zee, M Luannatt PA Unavailable Unavailable ZeeSee fowleratt PA Unavailable Unavailable Zee, M Barratt PA Unavailable Unavailable Zee, M Barratt PA Unavailable Unavailable Zee, M Barratt PA Unavailable Unavailable Zee, M Barratt PA Unavailable Unavailable Zee, M Barratt PA Unavailable Unavailable Zee, M Barratt PA Unavailable Unavailable Zee, M Barratt PA Unavailable Unavailable Zee, M Barratt PA Unavailable Unavailable Zee, M Barratt PA Unavailable Unavailable Zee, M Barratt PA Unavailable Unavailable Zee, M Barratt PA Unavailable Unavailable Zee, M Barratt PA Unavailable Unavailable Zee, M Barratt PA Unavailable Unavailable Zee, M Barratt PA Unavailable Unavailable Zee, M Barratt PA Unavailable Unavailable Singh, L Kenya RPA Unavailable Unavailable Singh, L Kenya RPA Unavailable Unavailable Singh, L Kenya RPA Unavailable Unavailable Singh, L Kenya RPA Unavailable Unavailable Singh, L Kenya RPA Unavailable Unavailable Singh, L Kenya RPA Unavailable Unavailable Singh, L Kenya RPA Unavailable Unavailable Singh, L Kenya RPA Unavailable Unavailable Singh, L Kenya RPA Unavailable Unavailable Singh, L Kenya RPA Unavailable Unavailable Singh, L Kenya RPA Unavailable Unavailable Singh, L Kenya RPA Unavailable Unavailable Singh, L Kenya RPA Unavailable Unavailable Singh, L Kenya RPA Unavailable Unavailable Singh, L Kenya RPA Unavailable Unavailable Singh, L Kenya RPA Unavailable Unavailable Singh, L Kenya RPA Unavailable Unavailable Singh, L Kenya RPA Unavailable Unavailable Singh, L Kenya RPA Unavailable Unavailable Singh, L Kenya RPA Unavailable Unavailable Singh, L Kenya RPA Unavailable Unavailable Singh, L Kenya RPA Unavailable Unavailable Singh, L Kenya RPA Unavailable Unavailable Singh, L Kenya RPA Unavailable Unavailable Singh, L Kenya RPA Unavailable Unavailable Singh, L Kenya RPA Unavailable Unavailable Singh, L Kenya RPA Unavailable Unavailable Singh, L Kenya RPA Unavailable Unavailable Singh, L Kenya RPA Unavailable Unavailable Singh, L Kenya RPA Unavailable Unavailable Singh, L Kenya RPA Unavailable Unavailable Singh, L Kenya RPA Unavailable Unavailable Marta Rehman MD Unavailable Unavailable Marta Rehman MD Unavailable Unavailable Marta Rehman MD Unavailable Unavailable Marta Rehman MD Unavailable Unavailable Marta Rehman MD Unavailable Unavailable Marta Rehman MD Unavailable Unavailable Marta Rehman MD Unavailable Unavailable Marta Rehman MD Unavailable Unavailable Marta Rehman MD Unavailable Unavailable Doug Stevens, Marta DUCKWORTH Unavailable Unavailable Doug Stevens, Marta DUCKWORTH Unavailable Unavailable Doug Stevens, Marta DUCKWORTH Unavailable Unavailable Doug Stevens, Marta DUCKWORTH Unavailable Unavailable Doug Stevens, Marta DUCKWORTH Unavailable Unavailable Doug Stevens, Marta DUCKWORTH Unavailable Unavailable Doug Stevens, Marta DUCKWORTH Unavailable Unavailable Doug Stevens, Marta DUCKWORTH Unavailable Unavailable Doug Stevens, Marta DUCKWORTH Unavailable Unavailable Doug Stevens, Marta DUCKWORTH Unavailable Unavailable Doug Stevens, Marta MD Unavailable Unavailable Doug Stevens, Marta DUCKWORTH Unavailable Unavailable Doug Stevens, Marta DUCKWORTH Unavailable Unavailable Doug Stevens, Marta DUCKWORTH Unavailable Unavailable Doug Stevens, Marta MD Unavailable Unavailable Doug Stevens, Marta DUCKWORTH Unavailable Unavailable Doug Stevens, Marta MD Unavailable Unavailable Doug Stevens, Marta MD Unavailable Unavailable Doug Stevens, Marta DUCKWORTH Unavailable Unavailable Doug Stevens, Marta DUCKWORTH Unavailable Unavailable Doug Stevens, Marta DUCKWORTH Unavailable Unavailable Doug Stevens, Marta DUCKWORTH Unavailable Unavailable Doug Stevens, Marta DUCKWORTH Unavailable Unavailable Doug Stevens, Marta DUCKWORTH Unavailable Unavailable Doug Stevens, Marta DUCKWORTH Unavailable Unavailable Doug Stevens, Marta DUCKWORTH Unavailable Unavailable Doug Stevens, Marta DUCKWORTH Unavailable Unavailable Doug Stevens, Marta DUCKWORTH Unavailable Unavailable Doug Stevens, Marta DUCKWORTH Unavailable Unavailable Doug Stevens, Marta DUCKWORTH Unavailable Unavailable Doug Stevens, Marta DUCKWORTH Unavailable Unavailable Doug Stevens, Marta DUCKWORTH Unavailable Unavailable Doug Stevens, Marta DUCKWORTH Unavailable Unavailable Doug Stevens, Marta DUCKWORTH Unavailable Unavailable Doug Stevens, Marta DUCKWORTH Unavailable Unavailable Doug Stevens, Marta DUCKWORTH Unavailable Unavailable Doug Stevens, Marta DUCKWORTH Unavailable Unavailable Doug Stevens, Marta DUCKWORTH Unavailable Unavailable Doug Stevens, Marta DUCKWORTH Unavailable Unavailable Doug Stevens, Marta DUCKWORTH Unavailable Unavailable Doug Stevens, Marta DCUKWORTH Unavailable Unavailable Doug Stevens, Marta DUCKWORTH Unavailable Unavailable Doug Stevens, Marta DUCKWORTH Unavailable Unavailable Doug Stevens, Marta DUCKWORTH Unavailable Unavailable Doug Stevens, Marta DUCKWORTH Unavailable Unavailable Doug Stevens, Marta DUCKWORTH Unavailable Unavailable Doug Stevens, Marta DUCKWORTH Unavailable Unavailable Doug Stevens, Marta DUCKWORTH Unavailable Unavailable Doug Stevens, Marta MD Unavailable Unavailable Doug Stevens, Marta MD Unavailable Unavailable Doug Stevens, Marta MD Unavailable Unavailable Doug Stevens, Marta MD Unavailable Unavailable Doug Stevens, Marta MD Unavailable Unavailable Doug Stevens, Marta MD Unavailable Unavailable Doug Stevens, Marta MD Unavailable Unavailable Doug Stevens, Marta MD Unavailable Unavailable Doug Stevens, Marta MD Unavailable Unavailable Doug Stevens, Marta MD Unavailable Unavailable Doug Stevens, Marta MD Unavailable Unavailable Doug Stevens, Marta MD Unavailable Unavailable Doug Stevens, Marta MD Unavailable Unavailable Doug Stevens, Marta MD Unavailable Unavailable Doug Stevens, Marta MD Unavailable Unavailable Doug Stevens, Marta MD Unavailable Unavailable Doug Stevens, Marta MD Unavailable Unavailable Doug Stevens, Marta MD Unavailable Unavailable Doug Stevens, Marta MD Unavailable Unavailable Doug Stevens, Marta MD Unavailable Unavailable Re-disclosure Warning The records that you are about to access may contain information from federally-assisted alcohol or drug abuse programs. If such information is present, then the following federally mandated warning applies: This information has been disclosed to you from records protected by federal confidentiality rules (42 CFR part 2). The federal rules prohibit you from making any further disclosure of this information unless further disclosure is expressly permitted by the written consent of the person to whom it pertains or as otherwise permitted by 42 CFR part 2. A general authorization for the release of medical or other information is NOT sufficient for this purpose. The Federal rules restrict any use of the information to criminally investigate or prosecute any alcohol or drug abuse patient.The records that you are about to access may contain highly sensitive health information, the redisclosure of which is protected by Article 27-F of the [facility] Public Health law. If you continue you may have access to information: Regarding HIV / AIDS; Provided by facilities licensed or operated by the [facility] Office of Mental Health; or Provided by the [facility] Office for People With Developmental Disabilities. If such information is present, then the following [facility] mandated warning applies: This information has been disclosed to you from confidential records which are protected by state law. State law prohibits you from making any further disclosure of this information without the specific written consent of the person to whom it pertains, or as otherwise permitted by law. Any unauthorized further disclosure in violation of state law may result in a fine or nursing home sentence or both. A general authorization for the release of medical or other information is NOT sufficient authorization for further disc losure. Family History Family Member Name Family Member Gender Family Member Status Date o f Status Description Data Source(s) Unknown Male Problem [facility] ([facility]) Unknown Unknown Problem [facility] ([facility] Unknown Male Encounters Encounter Providers Location Date Indications Data Source(s ) Office Visit Attender: Ramon GALLARDO Physical Therapy 11:15:00 AM EDT [facility] ([facility]) Outpatient Attender: Kenya Dowell/Leona/Jesus/R eindl 05/13/2021 09:45:00 AM EDT [facility] ([facility] Outpatient Attender: Hernesto Rosa MD Physical Therapy 09:30:00 AM EDT [facility] ([facility]) Outpatient Attender: Rob Christianson 03/13 01:30:00 PM EDT [facility] ([facility] ) Outpatient Attender: Marta Martin/ AMarcelinoMMarcelinoPMarcelino Urology 08/20/2020 02:00:00 PM EST [facility] ([facility]) Immunizations Vaccine Date Status Description Data Source(s) COVID-19 VACCINE Moderna 12/19/2020 12:00:00 AM EST completed [facility] Vaccine Series Complete: YESThis Data wa s Submitted to [facility] Via [employer]. COVID-19 VACCINE, MRNA-1273, LNP-S (MODERNA)/PF 12/19/2020 1 2:00:00 AM EST completed [facility] COVID-19 VACCINE Moderna 11/23/2020 12:00:00 AM EST completed [facility] Vaccine Series Complete: NOThis Data was Submitted to [facility] Via [employer]. COVID-19 VACCINE, MRNA-1273, LNP-S (MODERNA)/PF 11/23/2020 1 2:00:00 AM EST completed [facility] Medications Medication Brand Name Start Date Product Form Dose Route Admi nistrative Instructions Pharmacy Instructions Status Indications Reaction Description Data Source(s) Isopropyl Alcohol 0.7 ML/ML Medicated Pad Alcohol Swabs 03/13/2021 12:00:00 AM EDT active [facility] ([facility]) 1 ML glatiramer acetate 40 MG/ML Prefilled Syringe [Copaxone ] Copaxone 03/13/2021 12:00:00 AM EDT active [facility] ([facility]) Covid-19 vaccine, Unspecified 12/19/2020 12:00:00 AM EST completed [facility]) Medication administered onsite Covid-19 vaccine, Unspecified 11/23/2020 12:00:00 AM EST completed [facility] ([facility]) Medication administered onsite Insurance Providers Payer name Policy type / Coverage type Policy ID Covered libertarian ID Covered libertarian's relationship to pack Policy Pack Plan Information BLUE CARD C [id number] Spouse [id number] [place] 200/700 [id number] [id number] BCBS GENERIC C [id number] Spouse [id number] [place] 200/700 [id number] SP [id number] BS [place] [id number] Self [place] 200/700 [id number] [id number] [place] BCBS [id number] Parul NGN [id number] BLUE CARD C [id number] Self [id number] BS [facility] [id number] Self [id number] BS [facility] [id number] Self [id number] 00 [employer] BCBS [id number] Spo NGN [id number] BLUE CARD C [id number] Self [id number] BLUE CARD C [id number] Self [id number] MEDICARE A [id number] Self [id number] MEDICARE A [id number] Self [id number] A Medicare Medicare Primary [id number] Self [id number] [facility] [id number] Self BCBS OF [facility] O [id number] U [id number] MEDICARE [id number] SP [id number] MEDICARE C [id number] S [id number] EXCELL[employer] BCBS B [id number] S NGN [id number] MEDICARE C [id number] S [id number] MEDICARE C [id number] S [id number] A BS [facility] [id number] Self [id number] Medicare [facility] Govt Servic Medicare Primary [id number] Self [id number] MEDICARE [id number] SP [id number] A [place] B [id number] Self [id number] [facility] [id number] Self [id number] BCBS [facility] Loans [employer] Family Dependent [facility] Loans [employer] [id number] Self SELF PAY ONLY UNAVAILABLE SP UNAV AILABLE EXCELLUS BCBS B [id number] S NGN [id number] O UNAVAILABLE UNAVAILA BLE BCBS Of [facility] Loans [employer] Self Problems, Conditions, and Diagnoses No Information Surgeries/Procedures Procedure Description Date Indications Data Source(s) ARTHROCENTESIS ASPIR&/INJECTION MAJOR JT/BURSA 021 12:00:00 AM EDT [facility] ([facility] OFFICE OUTPATIENT VISIT 25 MINUTES 06/18/2021 12:00:00 AM EDT [facility] ([facility] OFFICE OUTPATIENT NEW 45 MINUTES 05/13/2021 12:00:00 A M EDT [facility] ([facility], ) ARTHROCENTESIS ASPIR&/INJECTION MAJOR JT/BURSA 021 12:00:00 AM EDT [facility] ([facility] RADEX SHOULDER COMPLETE MINIMUM 2 VIEWS 03/15/2021 12: 00:00 AM EDT [facility] ([facility] ) OFFICE OUTPATIENT NEW 45 MINUTES 03/15/2021 12:00:00 A M EDT [facility] ([facility]) RADEX SHOULDER COMPLETE MINIMUM 2 VIEWS 03/15/2021 12: 00:00 AM EDT [facility] ([facility] ) ECG ROUTINE ECG W/LEAST 12 LDS W/I&R 03/13/2021 12:00: 00 AM EDT [facility] ([facility]) OFFICE OUTPATIENT VISIT 25 MINUTES 03/13/2021 12:00:00 AM EDT [facility] US RETROPERITONEAL REAL TIME W/IMAGE LIMITED 0 12:00:00 AM EST [facility] ([facility]) US RETROPERITONEAL REAL TIME W/IMAGE LIMITED 0 12:00:00 AM EST [facility] ([facility]) Results ID Date Data Source [id number] 03/12/2021 08:49:00 AM EDT [facility] ([facility]) Name Value Range Interpretation Code Description Data Becca rce(s) Supporting Document(s) Calcidiol [Mass/volume] in Serum or Plasma 56.6 ng/mL 24.0-80.0 [facility] ([facility] This test was performed using [employer] I P Vitamin D immunoassay kit. Values obtained with different assay methods should not be used interchangeably. ID Date Data Source [id number] 03/12/2021 08:48:00 AM EDT [facility]) Name Value Range Interpretation Code Description Data Becca rce(s) Supporting Document(s) Cholesterol [Mass/volume] in Serum or Plasma 237 mg/dL 131-200 [facility] ([facility]) Cholesterol in HDL [Mass/volume] in Serum or Plasma 73 mg/dL 35-60 [facility] ([facility]) Triglyceride [Mass/volume] in Serum or Plasma 95 mg/dL 30-150 [facility] ([facility]) Cholesterol in LDL [Mass/volume] in Serum or Plasma by calcu lation 145 CALC 50-159 [facility] ([facility]) ID Date Data Source [id number] 03/12/2021 08:48:00 AM EDT [facility] ([facility]) Name Value Range Interpretation Code Description Data Becca rce(s) Supporting Document(s) Glucose [Mass/volume] in Serum or Plasma 93 mg/dL 74-99 [facility] ([facility]) 100-125 mg/dL PRE-DIABETES/FASTING >126 mg/dL DIABETES/FASTING Urea nitrogen [Mass/volume] in Serum or Plasma 20 mg/dL 7-18 [facility] ([facility]) Sodium [Moles/volume] in Serum or Plasma 143 meq/L 136-145 [facility] ([facility]) Creatinine 0.5 mg/dL 0.6-1.3 [facility] ([facility] Carbon dioxide, total [Moles/volume] in Serum or Plasma 33 meq/L 21 -32 [facility] ([facility]) Chloride [Moles/volume] in Serum or Plasma 103 meq/L 98-107 [facility] ([facility]) Potassium [Moles/volume] in Serum or Plasma 4.3 meq/L 3.5-5.1 [facility] ([facility]) Alkaline phosphatase isoenzyme [Units/volume] in Serum or Pl asma 110 mg/dL 46-116 [facility] ([facility]) Total Bilirubin 0.5 mg/dL 0.2-1.0 [facility] ([facility]) Calcium [Mass/volume] in Serum or Plasma 9.8 mg/dL 8.5-10.1 [facility] ([facility]) Aspartate aminotransferase [Enzymatic activity/volume] in Serum or Plasma 21 U/L 15-37 [facility] ([facility] ) Alanine aminotransferase [Enzymatic activity/volume] in Seru m or Plasma 37 U/L 12-78 [facility] ([facility]) A/G Ratio 1.35 CALC 1.00-1.90 [facility] ([facility]) Albumin [Mass/volume] in Serum or Plasma 4.2 g/dL 3.4-5.0 [facility] ([facility]) Proteinase 3 Ab [Units/volume] in Serum 7.3 g/dL 6.4-8.2 [facility] ([facility]) Glomerular filtration rate/1.73 sq M pre dicted among blacks [Volume Rate/Area] in Serum or Plasma by Creatinine-based formula (MDRD) Laboratory test result [facility] ([facility]) <content>CHRONIC KIDNEY DISEASE STAGING PER NKF</content>
<content></content>
<content>STAGE I & II GFR >= 60 NORMAL TO MILDLY DECREASED</content>
<content>STAGE III GFR 30-59 MODERATELY DECREASED</content>
<content>STAGE IV GFR 15-29 SEVERELY DECREASED</content>
<content>STAGE V GFR <15 VERY LITTLE GFR LEFT</content>
<content>ESRD GFR <15 ON BATCH MAKER</content>
<content></content> Glomerular filtration rate/1.73 sq M pre dicted among non-blacks [Volume Rate/Area] in Serum or Plasma by Creatinine-based formula (MDRD) Laboratory test result [facility] ([facility] ) ID Date Data Source [id number] 08/20/2020 02:56:00 PM EST [facility] ([facility]) Name Value Range Interpretation Code Description Data Becca rce(s) Supporting Document(s) Protein [Presence] in Urine by Test strip Laboratory test result [facility] ([facility]) Glucose [Presence] in Urine Laboratory test result [facility] ([facility]) Ua Nitrite Laboratory test result [facility] ([facility]) Blood [Presence] in Urine by Visual Laboratory test result [facility] ([facility]) Color of Urine Laboratory test result [facility] ([facility]) Ua Leuko Laboratory test result [facility] ([facility]) Ketones [Presence] in Urine by Test strip Laboratory test result [facility] ([facility]) Ua Specific [place] Laboratory test result 1.003-1.030 [facility] ([facility]) Clarity of Urine Laboratory test result [facility] ([facility]) Bilirubin.total [Presence] in Urine by Test strip Laboratory test res ult [facility] ([facility]) pH of Urine by Test strip 6.5 5.0-7.5 [facility] ([facility]) Urobilinogen [Mass/volume] in Urine by Test strip 0.2 E.U./dL 0.0-1.0 [facility] ([facility]) Procedure Social History Code Duration Value Status Description Data Source(s ) Smoking 08/20/2020 12:00:00 AM EST Quit - Age 26 completed Quit - Age 26 [facility]) Vital Signs ID Date Data Source UNK Name Value Range Interpretation Code Description Data Source(s) Body weight 56.700 kg 56.700 kg [facility] ([facility]) Systolic blood pressure 137 mm[Hg] 137 mm[Hg] [facility] Diastolic blood pressure 76 mm[Hg] 76 mm[Hg] [facility] ([facility]) Heart rate 63 /min 63 /min [facility] ([facility] system) Body height 62 [in_i] 62 [in_i] [facility] ([facility]) 5'2" Body weight 125.00 [lb_av] 125.00 [facility]_av] [facility] Body mass index (BMI) [Ratio] 22.9 kg/m2 22.9 k g/m2 [facility] ([facility]) [place] body weight 110 [lb_av] 110 [lb_av] [facility] Body surface area Derived from formula 1.57 m2 1.57 m2 [facility] ([facility]) Body height 61.5 [in_i] 61.5 [in_i] [facility] 5'1.50" Body mass index (BMI) [Ratio] 22.3 kg/m2 22.3 k g/m2 [facility] ([facility]) Body temperature 96.9 [degF] 96.9 [degF] [facility] Body weight 120.00 [lb_av] 120.00 [lb_av] [facility] T ([facility] ) Body mass index (BMI) [Ratio] 21.3 kg/m2 21.3 k g/m2 [facility] ([facility]) Systolic blood pressure 120 mm[Hg] 120 mm[Hg] M [facility] ([facility]) Diastolic blood pressure 80 mm[Hg] 80 mm[Hg] [facility] ([facility]) Heart rate 71 /min 71 /min [facility] ([facility]) Body height 63 [in_i] 63 [in_i] [facility] ([facility]) 5'3" Body weight 120.00 [lb_av] 120.00 [lb_av] MED[facility] T ([facility]) staited weight Oxygen saturation in Arterial blood by Pulse oximetry 96 % 96 % [facility] ([facility]) RM Air Body mass index (BMI) [Ratio] 21.9 kg/m2 21.9 k g/m2 [facility] ([facility]) Systolic blood pressure 134 mm[Hg] 134 mm[Hg] M [facility] ([facility]) Body weight 120.00 [lb_av] 120.00 [lb_av] [facility] ([facility]) Body weight 54.432 kg 54.432 kg [facility] ([facility] Diastolic blood pressure 81 mm[Hg] 81 mm[Hg] [facility] ([facility]) Heart rate 71 /min 71 /min [facility] Body height 62 [in_i] 62 [in_i] [facility] 5'2"
--- OUTSIDE RECORDS SUMMARY | 2021-08-01 11:28 | CCD | Continuity of Care Document ---
Author Author Addie ELLIS [place] Organization Unknown Address [address], [address] [place] [address] Phone [phone] Care Team Providers Care Issuer Name Role Phone Rob Giraldo M.D. AUTM [phone] Problems Description No Information Available Social History [...] lb BMI (Body Mass Index) 22.9 kg/m2 [place] Body Weight 110 lb Weight 56.700 kg BSA (Body Surface Area) 1.57 m2 Results Description No Information Available Procedures Description No Information Available Medical Devices Description No Information Available Encounters Description No Information Available Assessments Description No Information Available Plan of Treatment No Information Available Functional Status Description No Information Available Mental Status Description No Information Available Referrals Description No Information Available
[2021-08-01] MEDS ORDERED: LIDOCAINE 2% 100MG/5ML SDV (FOR ANES.) As Ordered ONE (12:35)
[2021-08-01] MEDS ORDERED: propofoL 200 MG/20 ML VIAL As Ordered ONE (12:35)
--- NOTE | 2021-08-01 13:16 | ROOR ---
Patient Name: Addie Yanez Procedure Date: 08/01/2021 1:04 PM Date of : 1950 Age: 71 Room: [facility] Gender: Female Note Status: Finalized Procedure: Upper GI endoscopy Indications: Generalized abdominal pain Providers: Santos Lambert Jr, MD Referring MD: Rob Giraldo MD Requesting Provider: Medicines: Propofol per Anesthesia Complications: No immediate complications. Procedure: Pre-Anesthesia Assessment: - Prior to the procedure, a History and Physical was performed, and patient medications and allergies were reviewed. The patient is competent. The risks and benefits of the procedure and the sedation options and risks were discussed with the patient. All questions were answered and informed consent was obtained. Patient identification and proposed procedure were verified by the physician and the nurse in the pre-procedure area and in the procedure room. Mental Status Examination: alert and oriented. Airway Examination: normal oropharyngeal airway and neck mobility. Respiratory Examination: clear to auscultation. CV Examination: normal. ASA Grade Assessment: II - A patient with mild systemic disease. After reviewing the risks and benefits, the patient was deemed in satisfactory condition to undergo the procedure. The anesthesia plan was to use moderate sedation / analgesia (conscious sedation). Immediately prior to administration of medications, the patient was re-assessed for adequacy to receive sedatives. The heart rate, respiratory rate, oxygen saturations, blood pressure, adequacy of pulmonary ventilation, and response to care were monitored throughout the procedure. The physical status of the patient was re-assessed after the procedure. The Endoscope was introduced through the mouth, and advanced to the second part of duodenum. The upper GI endoscopy was accomplished without difficulty. The patient tolerated the procedure well. Findings: The upper third of the esophagus, middle third of the esophagus and lower third of the esophagus were normal. A small hiatal hernia was present. Diffuse moderate inflammation characterized by congestion (edema), erythema, friability and granularity was found in the gastric fundus, in the gastric body, in the gastric antrum and in the prepyloric region of the stomach. Biopsies were taken with a cold forceps for histology. The duodenal bulb, first portion of the duodenum and second portion of the duodenum were normal. Impression: - Normal upper third of esophagus, middle third of esophagus and lower third of esophagus. - Small hiatal hernia. - Bile gastritis. Biopsied. - Normal duodenal bulb, first portion of the duodenum and second portion of the duodenum. Recommendation: - Discharge patient to home (ambulatory). - Return to my office as previously scheduled. Procedure Code(s): --- Professional --- 72998, Esophagogastroduodenoscopy, flexible, transoral; with biopsy, single or multiple Diagnosis Code(s): --- Professional --- K44.9, Diaphragmatic hernia without obstruction or gangrene K29.60, Other gastritis without bleeding R10.84, Generalized abdominal pain CPT copyright 2019 [employer]. All rights reserved. The codes documented in this report are preliminary and upon maintenance controller review may be revised to meet current compliance requirements. Santos Lambert MD Santos Lambert Jr, MD 08/01/2021 1:15:34 PM Electronically signed by Santos Lambert Jr, MD Number of Addenda: 0 Note Initiated On: 08/01/2021 1:04 PM Estimated Blood Loss: Estimated blood loss: none.
[2021-08-01 14:10] VITALS: BP 161/76
--- NOTE | 2021-08-01 14:47 | ROOR ---
Patient Name: Addie Yanez Procedure Date: 08/01/2021 1:06 PM Date of : 1950 Age: 71 Room: [facility] Gender: Female Note Status: Finalized Procedure: Colonoscopy Indications: Screening in patient at increased risk: Family history of 1st-degree relative with colorectal cancer Providers: Santos Lambert Jr, MD Referring MD: Rob Giraldo MD Requesting Provider: Medicines: Propofol per Anesthesia Complications: No immediate complications. Procedure: Pre-Anesthesia Assessment: - Prior to the procedure, a History and Physical was performed, and patient medications and allergies were reviewed. The patient is competent. The risks and benefits of the procedure and the sedation options and risks were discussed with the patient. All questions were answered and informed consent was obtained. Patient identification and proposed procedure were verified by the physician and the nurse in the pre-procedure area and in the procedure room. Mental Status Examination: alert and oriented. Airway Examination: normal oropharyngeal airway and neck mobility. Respiratory Examination: clear to auscultation. CV Examination: normal. ASA Grade Assessment: II - A patient with mild systemic disease. After reviewing the risks and benefits, the patient was deemed in satisfactory condition to undergo the procedure. The anesthesia plan was to use moderate sedation / analgesia (conscious sedation). Immediately prior to administration of medications, the patient was re-assessed for adequacy to receive sedatives. The heart rate, respiratory rate, oxygen saturations, blood pressure, adequacy of pulmonary ventilation, and response to care were monitored throughout the procedure. The physical status of the patient was re-assessed after the procedure. The Colonoscope was introduced through the anus and advanced to the cecum, identified by appendiceal orifice and ileocecal valve. The colonoscopy was performed without difficulty. The patient tolerated the procedure well. The quality of the bowel preparation was adequate. Findings: The rectum, recto-sigmoid colon, sigmoid colon, descending colon, transverse colon, ascending colon, cecum, appendiceal orifice and ileocecal valve appeared normal. Impression: - The rectum, recto-sigmoid colon, sigmoid colon, descending colon, transverse colon, ascending colon, cecum, appendiceal orifice and ileocecal valve are normal. - No specimens collected. Recommendation: - Discharge patient to home (ambulatory). - Repeat colonoscopy in 5 years for screening purposes. Procedure Code(s): --- Professional --- 81108, Colonoscopy, flexible; diagnostic, including collection of specimen(s) by brushing or washing, when performed (separate procedure) Diagnosis Code(s): --- Professional --- Z80.0, Family history of malignant neoplasm of digestive organs CPT copyright 2019 [employer]. All rights reserved. The codes documented in this report are preliminary and upon heavy equipment sales associate review may be revised to meet current compliance requirements. Santos Lambert MD Santos Lambert Jr, MD 08/01/2021 2:46:26 PM Electronically signed by Santos Lambert Jr, MD Number of Addenda: 0 Note Initiated On: 08/01/2021 1:06 PM Estimated Blood Loss: Estimated blood loss: none.
== END 2021-08-01 14:24 | disposition home or self-care (01) ==
LOC: M OPP 11:23
PROVIDERS: ATTEND Surgery
DX: Z12.11 Encounter for screening for malignant neoplasm of colon (principal); Z80.0 Family history of malignant neoplasm of digestive organs; K44.9 Diaphragmatic hernia without obstruction or gangrene; K29.60 Other gastritis without bleeding; R10.84 Generalized abdominal pain; G35 Multiple sclerosis; J44.9 Chronic obstructive pulmonary disease, unspecified; Z79.899 Other long term (current) drug therapy; Z88.0 Allergy status to penicillin; Z88.2 Allergy status to sulfonamides; Z87.442 Personal history of urinary calculi; Z87.891 Personal history of nicotine dependence
CPT/HCPCS: 43239; 88305; G0105

== ENCOUNTER → 2023-09-15 | Outpatient (CLI) | payer MEDICARE, BC ==
[~2023-09-15] MED LIST changes: -NS 1,000 ML IV ONE
== END ==
LOC: M RAD 13:38
PROVIDERS: ATTEND Urology
DX: N20.0 Calculus of kidney (principal); N13.39 Other hydronephrosis

== ENCOUNTER → 2023-10-02 | Outpatient (REF) | payer MEDICARE, BC ==
[2023-10-02 17:40] LABS: APPEARANCE, URINE CLOUDY (CLEAR); BACTERIA, URINE AUTO NEGATIVE (NEGATIVE); BILIRUBIN, URINE AUTO NEGATIVE (NEGATIVE); BLOOD, URINE BLOOD 2+ (NEGATIVE); COLOR, URINE YELLOW (YELLOW); GLUCOSE, URINE (UA) AUTO NEGATIVE (NEGATIVE); KETONE, URINE AUTO NEGATIVE (NEGATIVE); LEUKOCYTE ESTERASE, URINE AUTO 2+ (NEGATIVE); MUCUS, URINE SMALL (NEGATIVE); NITRITE, URINE AUTO NEGATIVE (NEGATIVE); PROTEIN, URINE AUTO 2+ mg/dL (NEGATIVE); RBC, URINE AUTO 18 /HPF (0-3); SPECIFIC GRAVITY URINE AUTO 1.011 (1.002-1.035); SQUAMOUS EPITHELIAL CELL UR AU 1 /HPF (0-6); UROBILINOGEN, URINE AUTO 0.2 mg/dL (0.0-2.0); WBC, URINE AUTO 1 /HPF (0-3)
== END ==
LOC: M LAB REF 16:39
PROVIDERS: ATTEND Family Medicine
DX: Z01.812 Encounter for preprocedural laboratory examination (principal); Z79.899 Other long term (current) drug therapy

== ENCOUNTER → 2023-10-06 | Outpatient (CLI) | payer MEDICARE, BC | LOC: M PLAIMG 10:16 | PROVIDERS: ATTEND Urology | DX: N20.0 Calculus of kidney (principal); K76.89 Other specified diseases of liver; J98.4 Other disorders of lung; Z90.49 Acquired absence of other specified parts of digestive tract; Z96.0 Presence of urogenital implants ==

== ENCOUNTER → 2023-10-09 | Outpatient (REF) | payer MEDICARE, BC ==
[2023-10-09 13:55] LABS: AMORPHOUS SEDIMENT SMALL (NEGATIVE); APPEARANCE, URINE TURBID (CLEAR); BACTERIA, URINE AUTO NEGATIVE (NEGATIVE); BILIRUBIN, URINE AUTO NEGATIVE (NEGATIVE); BLOOD, URINE BLOOD 1+ (NEGATIVE); COLOR, URINE AMBER (YELLOW); GLUCOSE, URINE (UA) AUTO NEGATIVE (NEGATIVE); KETONE, URINE AUTO NEGATIVE (NEGATIVE); LEUKOCYTE ESTERASE, URINE AUTO 3+ (NEGATIVE); MUCUS, URINE SMALL (NEGATIVE); NITRITE, URINE AUTO NEGATIVE (NEGATIVE); PROTEIN, URINE AUTO 3+ mg/dL (NEGATIVE); RBC, URINE AUTO TNTC /HPF (0-3); SQUAMOUS EPITHELIAL CELL UR AU 3 /HPF (0-6); TRIPLE PHOSPHATE CRYSTALS SMALL; UROBILINOGEN, URINE AUTO 0.2 mg/dL (0.0-2.0); WBC, URINE AUTO 1 /HPF (0-3)
== END ==
LOC: M LAB REF 12:59
PROVIDERS: ATTEND Physician Assistant
DX: N20.0 Calculus of kidney (principal); R30.0 Dysuria; R31.0 Gross hematuria

== ENCOUNTER → 2023-10-22 | Outpatient (CLI) | payer MEDICARE, BC | LOC: M PLAIMG 13:52 | PROVIDERS: ATTEND Urology | DX: N20.0 Calculus of kidney (principal); Z96.0 Presence of urogenital implants ==

== ENCOUNTER 2024-09-05 20:41 | Emergency (ER) | payer BC, MEDICARE ==
[~2024-09-05] VITALS: Ht 157.5 cm; Wt 51.8 kg
[~2024-09-05 20:41] MED LIST changes: +PANT20TA6 PO
[2024-09-05 20:52] VITALS: TEMP 98.6
[2024-09-05 21:42] LABS: BASO % 0.3 % (0.0-1.0); EOS % 0.4 % (0.0-3.0); HEMATOCRIT 36.1 % (36.0-47.0); HEMOGLOBIN 12.3 g/dl (12.0-15.5); LYMPH % 14.1 % (24.0-44.0); MEAN CORPUSCULAR HGB CONC 34.1 g/dl (32.0-36.5); MEAN CORPUSCULAR VOLUME 90.9 fl (80.0-96.0); MONO # 0.7 10^3/uL (0.0-0.8); MONO % 10.1 % (2.0-8.0); NEUTROPHILS # 5.1 10^3/uL (1.5-8.5); NEUTROPHILS % 74.8 % (36.0-66.0); PLATELET COUNT, AUTOMATED 272 10^3/uL (150-450); RED BLOOD COUNT 3.97 10^6/uL (4.00-5.40); WHITE BLOOD COUNT 6.8 10^3/uL (4.0-10.0)
[2024-09-05 22:13] LABS: LIPASE 32 U/L (12-53)
[2024-09-05 22:15] LABS: ALBUMIN 3.1 G/DL (3.2-5.2); ALKALINE PHOSPHATASE 130 U/L (35-104); ALT/SGPT 16 U/L (7.0-40); AST/SGOT 9 U/L (<34); BILIRUBIN,DIRECT 0.1 MG/DL (<0.4); BILIRUBIN,TOTAL 0.4 MG/DL (0.3-1.2); BLOOD UREA NITROGEN 12 MG/DL (9-23); CALCIUM LEVEL 9.2 MG/DL (8.3-10.6); CARBON DIOXIDE LEVEL 31 MMOL/L (20-31); CHLORIDE LEVEL 107 MMOL/L (98-107); CREATININE FOR GFR 0.55 MG/DL (0.55-1.30); GLOMERULAR FILTRATION RATE > 60.0 (>39); GLUCOSE, FASTING 120 MG/DL (74-106); POTASSIUM SERUM 3.5 MMOL/L (3.5-5.1); SODIUM LEVEL 142 MMOL/L (136-145); TOTAL PROTEIN 6.5 G/DL (5.7-8.2)
[2024-09-05] MEDS ORDERED: ISOVUE-370 76% 100ML VIAL As Ordered ONE (22:27)
[2024-09-05 23:42] LABS: CK-MB VALUE MASS < 1.0 NG/ML (<3.6)
[2024-09-05 23:44] LABS: CPK CREATINE PHOSPHOKINASE 34 U/L (34-145); MB/CK RELATIVE INDEX 2.94 (< OR =4)
[2024-09-06 01:12] LABS: APPEARANCE, URINE HAZY (CLEAR); BACTERIA, URINE AUTO 1+ (NEGATIVE); BILIRUBIN, URINE AUTO NEGATIVE (NEGATIVE); BLOOD, URINE BLOOD 3+ (NEGATIVE); CALCIUM PHOSPHATE CRYSTALS MODERATE; COLOR, URINE YELLOW (YELLOW); GLUCOSE, URINE (UA) AUTO NEGATIVE (NEGATIVE); KETONE, URINE AUTO NEGATIVE (NEGATIVE); LEUKOCYTE ESTERASE, URINE AUTO 3+ (NEGATIVE); MUCUS, URINE SMALL (NEGATIVE); NITRITE, URINE AUTO NEGATIVE (NEGATIVE); PROTEIN, URINE AUTO 2+ mg/dL (NEGATIVE); RBC, URINE AUTO TNTC /HPF (0-3); SPECIFIC GRAVITY URINE AUTO 1.055 (1.002-1.035); SQUAMOUS EPITHELIAL CELL UR AU 1 /HPF (0-6); TRANSITIONAL EPITHELIAL AUTO <1 /HPF; UROBILINOGEN, URINE AUTO 0.2 mg/dL (0.0-2.0); WBC, URINE AUTO 30 /HPF (0-3)
[2024-09-06 01:13] LABS: CK-MB VALUE MASS < 1.0 NG/ML (<3.6)
[2024-09-06 01:14] LABS: CPK CREATINE PHOSPHOKINASE 31 U/L (34-145); MB/CK RELATIVE INDEX 3.22 (< OR =4)
[2024-09-06] MEDS: NS 1,000 ML IV ONE (01:16)
[2024-09-06 02:30] VITALS: BP 155/66; O2SAT 97
== END 2024-09-06 03:28 | disposition home or self-care (01) ==
LOC: M ED 20:41 → EDBD 20:41 → M ED 09-06 03:28
DX: R07.9 Chest pain, unspecified (principal); R53.1 Weakness; G35 Multiple sclerosis; Z87.442 Personal history of urinary calculi; Z87.891 Personal history of nicotine dependence; Z88.0 Allergy status to penicillin; Z88.2 Allergy status to sulfonamides; Z79.02 Long term (current) use of antithrombotics/antiplatelets; Z79.899 Other long term (current) drug therapy
CPT/HCPCS: 71275; 74177; 80048; 80076; 81001; 82550; 82553; 83605; 83690; 84484; 85025; 93005; 93041; 96360; 96361; 99284; Q9967

== ENCOUNTER → 2024-10-14 | Outpatient (REF) | payer MEDICARE ==
[2024-10-14 17:17] LABS: APPEARANCE, URINE CLOUDY (CLEAR); BACTERIA, URINE AUTO 1+ (NEGATIVE); BILIRUBIN, URINE AUTO NEGATIVE (NEGATIVE); BLOOD, URINE BLOOD 3+ (NEGATIVE); COLOR, URINE AMBER (YELLOW); GLUCOSE, URINE (UA) AUTO NEGATIVE (NEGATIVE); KETONE, URINE AUTO NEGATIVE (NEGATIVE); LEUKOCYTE ESTERASE, URINE AUTO TRACE (NEGATIVE); MUCUS, URINE SMALL (NEGATIVE); NITRITE, URINE AUTO POSITIVE (NEGATIVE); PROTEIN, URINE AUTO 2+ mg/dL (NEGATIVE); RBC, URINE AUTO TNTC /HPF (0-3); SPECIFIC GRAVITY URINE AUTO 1.016 (1.002-1.035); SQUAMOUS EPITHELIAL CELL UR AU 5 /HPF (0-6); UROBILINOGEN, URINE AUTO 0.2 mg/dL (0.0-2.0); WBC, URINE AUTO TNTC /HPF (0-3)
== END ==
LOC: M LAB REF 16:27
PROVIDERS: ATTEND Family Medicine
DX: Z01.818 Encounter for other preprocedural examination (principal)

== ENCOUNTER → 2024-10-22 | Outpatient (REF) | payer MEDICARE ==
[2024-10-22 21:07] LABS: APPEARANCE, URINE CLOUDY (CLEAR); BACTERIA, URINE AUTO 1+ (NEGATIVE); BILIRUBIN, URINE AUTO NEGATIVE (NEGATIVE); BLOOD, URINE BLOOD 3+ (NEGATIVE); COLOR, URINE YELLOW (YELLOW); GLUCOSE, URINE (UA) AUTO NEGATIVE (NEGATIVE); KETONE, URINE AUTO NEGATIVE (NEGATIVE); LEUKOCYTE ESTERASE, URINE AUTO 2+ (NEGATIVE); MUCUS, URINE SMALL (NEGATIVE); NITRITE, URINE AUTO NEGATIVE (NEGATIVE); PROTEIN, URINE AUTO 2+ mg/dL (NEGATIVE); RBC, URINE AUTO TNTC /HPF (0-3); SPECIFIC GRAVITY URINE AUTO 1.012 (1.002-1.035); SQUAMOUS EPITHELIAL CELL UR AU 1 /HPF (0-6); UROBILINOGEN, URINE AUTO 0.2 mg/dL (0.0-2.0); WBC, URINE AUTO TNTC /HPF (0-3)
== END ==
LOC: M LAB REF 11:31
PROVIDERS: ATTEND Physician Assistant Medical
DX: N39.0 Urinary tract infection, site not specified (principal)

== ENCOUNTER 2024-12-04 19:17 | Inpatient (IN) | payer MEDICARE ==
[~2024-12-04] VITALS: Ht 157.5 cm; Wt 51.8 kg
[2024-12-04 20:30] LABS: BASO % 0.2 % (0.0-1.0); EOS # 0.1 10^3/uL (0.0-0.5); EOS % 0.7 % (0.0-3.0); HEMATOCRIT 43.1 % (36.0-47.0); HEMOGLOBIN 13.9 g/dl (12.0-15.5); LYMPH % 6.4 % (24.0-44.0); MEAN CORPUSCULAR HEMOGLOBIN 29.9 pg (27.0-33.0); MEAN CORPUSCULAR HGB CONC 32.3 g/dl (32.0-36.5); MEAN CORPUSCULAR VOLUME 92.7 fl (80.0-96.0); MONO # 1.1 10^3/uL (0.0-0.8); MONO % 6.9 % (2.0-8.0); NEUTROPHILS # 13.2 10^3/uL (1.5-8.5); NEUTROPHILS % 85.3 % (36.0-66.0); PLATELET COUNT, AUTOMATED 310 10^3/uL (150-450); RED BLOOD COUNT 4.65 10^6/uL (4.00-5.40); WHITE BLOOD COUNT 15.4 10^3/uL (4.0-10.0)
[2024-12-04 20:44] LABS: LIPASE 20 U/L (12-53)
[2024-12-04 20:57] LABS: ALBUMIN 3.8 G/DL (3.2-5.2); ALKALINE PHOSPHATASE 224 U/L (35-104); ALT/SGPT 120 U/L (7.0-40); AST/SGOT 108 U/L (<34); BILIRUBIN,DIRECT 0.4 MG/DL (<0.4); BILIRUBIN,TOTAL 1.1 MG/DL (0.3-1.2); BLOOD UREA NITROGEN 19 MG/DL (9-23); CALCIUM LEVEL 10.3 MG/DL (8.3-10.6); CARBON DIOXIDE LEVEL 30 MMOL/L (20-31); CHLORIDE LEVEL 104 MMOL/L (98-107); GLOMERULAR FILTRATION RATE > 60.0 (>39); GLUCOSE, FASTING 104 MG/DL (74-106); POTASSIUM SERUM 4.1 MMOL/L (3.5-5.1); SODIUM LEVEL 143 MMOL/L (136-145); TOTAL PROTEIN 7.8 G/DL (5.7-8.2)
[2024-12-05 00:07] LABS: KETONE, URINE AUTO RFX 1+ mg/dL (NEGATIVE); MUCUS, URINE RFX SMALL (NEGATIVE); NITRITE, URINE AUTO RFX NEGATIVE (NEGATIVE); RBC, URINE AUTO RFX 13 /HPF (0-3); SQUAM EPITHELIAL CELL UR AURFX 2 /HPF (0-6); TRANSITIONAL EPITHELIAL AU RFX 1 /HPF
[2024-12-05 00:08] LABS: LEUKOCYTE ESTERASE UR AUTO RFX 1+ (NEGATIVE); WBC, URINE AUTO RFX 112 /HPF (0-3)
[2024-12-05] MEDS: NS 500 ML IV ONE (00:40)
[2024-12-05] MEDS: KETOROLAC 30 MG/ML 1ML VIAL IV ONE (01:09)
[2024-12-05] MEDS: cefTRIAXone SOD 1 GM in DEXTROSE 5% (D5W) ADV/MINI-BAG 50 ML IV ONE (01:51)
[2024-12-05] MEDS: ACETAMINOPHEN *IV* 1,000 MG in IV 1 EA IV ONE (01:54)
[2024-12-05] MEDS: NS (Normal Saline) 0.9% 1,000 ML IV SCH (03:00)
[2024-12-05] MEDS ORDERED: MOM 30ML SUSPENSION UDC PO PRN (03:00)
[2024-12-05] MEDS ORDERED: MAALOX 30 ML SUSP *UDC PO PRN (03:00)
[2024-12-05] MEDS ORDERED: CVS10CAP7 PO (06:07)
[2024-12-05] MEDS ORDERED: VITA100065 PO (06:07)
[2024-12-05] MEDS ORDERED: HOME MED LIST COMPLETE! XX SCH (06:10)
[2024-12-05] MEDS: DOCUSATE SODIUM 100MG CAPSULE PO SCH (09:00)
[2024-12-05] MEDS: ACETAMINOPHEN 325 MG TAB PO PRN (10:57)
[2024-12-05 10:59] LABS: BASO % 0.3 % (0.0-1.0); EOS # 0.1 10^3/uL (0.0-0.5); EOS % 0.6 % (0.0-3.0); HEMATOCRIT 37.7 % (36.0-47.0); HEMOGLOBIN 12.2 g/dl (12.0-15.5); LYMPH # 0.9 10^3/uL (1.5-5.0); LYMPH % 7.6 % (24.0-44.0); MEAN CORPUSCULAR HGB CONC 32.4 g/dl (32.0-36.5); MEAN CORPUSCULAR VOLUME 92.6 fl (80.0-96.0); MONO # 0.8 10^3/uL (0.0-0.8); MONO % 6.8 % (2.0-8.0); NEUTROPHILS # 9.8 10^3/uL (1.5-8.5); PLATELET COUNT, AUTOMATED 244 10^3/uL (150-450); RED BLOOD COUNT 4.07 10^6/uL (4.00-5.40); WHITE BLOOD COUNT 11.7 10^3/uL (4.0-10.0)
[2024-12-05 11:12] LABS: ALBUMIN 3.2 G/DL (3.2-5.2); ALKALINE PHOSPHATASE 203 U/L (35-104); ALT/SGPT 87 U/L (7.0-40); AST/SGOT 55 U/L (<34); BILIRUBIN,TOTAL 0.8 MG/DL (0.3-1.2); BLOOD UREA NITROGEN 19 MG/DL (9-23); CALCIUM LEVEL 9.4 MG/DL (8.3-10.6); CARBON DIOXIDE LEVEL 26 MMOL/L (20-31); CHLORIDE LEVEL 108 MMOL/L (98-107); CREATININE FOR GFR 0.56 MG/DL (0.55-1.30); GLOMERULAR FILTRATION RATE > 60.0 (>39); GLUCOSE, FASTING 77 MG/DL (74-106); SODIUM LEVEL 147 MMOL/L (136-145)
[2024-12-05 11:13] LABS: CHOLESTEROL LEVEL 185 MG/DL (<200); CHOLESTEROL RISK RATIO 2.04 (<5); HDL CHOLESTEROL 90.6 MG/DL (>40); LDL CHOLESTEROL 75.6 MG/DL (<100); NON-HDL-C 94.4 MG/DL; TRIGLYCERIDES LEVEL 94 MG/DL (<150)
[2024-12-05 11:27] LABS: HEPATITIS B SURFACE ANTIGEN NEGATIVE (NEGATIVE)
[2024-12-05 11:49] LABS: HEPATITIS B CORE ANTIBODY IGM NEGATIVE (NEGATIVE)
[2024-12-05 16:00] VITALS: BP 125/81; TEMP 97.3; O2SAT 98
[2024-12-05] MEDS: D5W 1,000 ML IV ONE (16:12)
[2024-12-05 18:27] LABS: BLOOD UREA NITROGEN 16 MG/DL (9-23); CALCIUM LEVEL 8.2 MG/DL (8.3-10.6); CARBON DIOXIDE LEVEL 24 MMOL/L (20-31); CHLORIDE LEVEL 105 MMOL/L (98-107); CREATININE FOR GFR 0.42 MG/DL (0.55-1.30); GLOMERULAR FILTRATION RATE > 60.0 (>39); GLUCOSE, FASTING 322 MG/DL (74-106); POTASSIUM SERUM 3.2 MMOL/L (3.5-5.1); SODIUM LEVEL 137 MMOL/L (136-145)
[2024-12-05 20:00] VITALS: BP 117/75; TEMP 97.2; O2SAT 97
[2024-12-05] MEDS: cefTRIAXone SOD 1 GM in DEXTROSE 5% (D5W) ADV/MINI-BAG 50 ML IV SCH (21:46)
[2024-12-06] VITALS (9 sets, daily range): BP systolic 100–142; BP diastolic 63–78; TEMP 97.2–98.9; O2SAT 93–97
[2024-12-06 06:05] LABS: HEMATOCRIT 37.4 % (36.0-47.0); HEMOGLOBIN 12.2 g/dl (12.0-15.5); MEAN CORPUSCULAR HEMOGLOBIN 30.2 pg (27.0-33.0); MEAN CORPUSCULAR HGB CONC 32.6 g/dl (32.0-36.5); MEAN CORPUSCULAR VOLUME 92.6 fl (80.0-96.0); PLATELET COUNT, AUTOMATED 226 10^3/uL (150-450); RED BLOOD COUNT 4.04 10^6/uL (4.00-5.40); WHITE BLOOD COUNT 7.2 10^3/uL (4.0-10.0)
[2024-12-06 06:41] LABS: ALBUMIN 2.8 G/DL (3.2-5.2); ALKALINE PHOSPHATASE 173 U/L (35-104); ALT/SGPT 69 U/L (7.0-40); AST/SGOT 43 U/L (<34); BILIRUBIN,TOTAL 0.5 MG/DL (0.3-1.2); BLOOD UREA NITROGEN 13 MG/DL (9-23); CALCIUM LEVEL 8.9 MG/DL (8.3-10.6); CARBON DIOXIDE LEVEL 26 MMOL/L (20-31); CHLORIDE LEVEL 107 MMOL/L (98-107); CREATININE FOR GFR 0.47 MG/DL (0.55-1.30); GLOMERULAR FILTRATION RATE > 60.0 (>39); GLUCOSE, FASTING 90 MG/DL (74-106); MAGNESIUM LEVEL 1.9 MG/DL (1.8-2.4); POTASSIUM SERUM 3.7 MMOL/L (3.5-5.1); SODIUM LEVEL 143 MMOL/L (136-145); TOTAL PROTEIN 6.3 G/DL (5.7-8.2)
[2024-12-06 07:28] LABS: HEMOGLOBIN A1c 5.1 % (4.0-6.0)
[2024-12-06] MEDS: UNRESOLVED PATIENT OWN MED ORDER XX SCH (08:35)
[2024-12-06] MEDS ORDERED: ENTER DRUG NAME HERE (PATIENT'S OWN MED) PO SCH (09:00)
[2024-12-06] MEDS ORDERED: PERCOCET 5MG/325MG TAB PO PRN (09:25)
[2024-12-06] MEDS: LR 1,000 ML IV ONE (10:12)
[2024-12-06] MEDS: KETOROLAC 30 MG/ML 1ML VIAL IV ONE (10:13)
[2024-12-06] MEDS: MORPHINE 4 MG/ML 1ML VIAL IV ONE (10:36)
[2024-12-06] MEDS: ONDANSETRON 4MG 2ML VIAL IV PRN (14:04)
[2024-12-06 15:37] LABS: ANA SCREEN, IFA NEGATIVE (NEGATIVE)
[2024-12-07 00:39] VITALS: BP 126/69; TEMP 97.3; O2SAT 94
[2024-12-07] MEDS ORDERED: ENTER DRUG NAME HERE (PATIENT'S OWN MED) SQ SCH (02:55)
[2024-12-07] MEDS ORDERED: MIRALAX *UNIT DOSE* 17GM PACKET PO PRN (03:00)
[2024-12-07 03:26] VITALS: BP 114/66; TEMP 97.6; O2SAT 95
[2024-12-07 05:47] LABS: BASO % 0.4 % (0.0-1.0); EOS # 0.1 10^3/uL (0.0-0.5); EOS % 1.3 % (0.0-3.0); HEMATOCRIT 34.7 % (36.0-47.0); LYMPH # 1.3 10^3/uL (1.5-5.0); MEAN CORPUSCULAR HEMOGLOBIN 29.8 pg (27.0-33.0); MEAN CORPUSCULAR HGB CONC 31.7 g/dl (32.0-36.5); MONO # 0.6 10^3/uL (0.0-0.8); MONO % 11.4 % (2.0-8.0); NEUTROPHILS # 3.4 10^3/uL (1.5-8.5); NEUTROPHILS % 62.3 % (36.0-66.0); PLATELET COUNT, AUTOMATED 230 10^3/uL (150-450); RED BLOOD COUNT 3.69 10^6/uL (4.00-5.40); WHITE BLOOD COUNT 5.4 10^3/uL (4.0-10.0)
[2024-12-07 06:10] LABS: ALBUMIN 2.6 G/DL (3.2-5.2); ALKALINE PHOSPHATASE 217 U/L (35-104); ALT/SGPT 106 U/L (7.0-40); AST/SGOT 83 U/L (<34); BILIRUBIN,TOTAL 0.4 MG/DL (0.3-1.2); BLOOD UREA NITROGEN 13 MG/DL (9-23); CARBON DIOXIDE LEVEL 24 MMOL/L (20-31); CHLORIDE LEVEL 108 MMOL/L (98-107); CREATININE FOR GFR 0.48 MG/DL (0.55-1.30); GLOMERULAR FILTRATION RATE > 60.0 (>39); GLUCOSE, FASTING 75 MG/DL (74-106); POTASSIUM SERUM 3.7 MMOL/L (3.5-5.1); SODIUM LEVEL 145 MMOL/L (136-145); TOTAL PROTEIN 5.8 G/DL (5.7-8.2)
[2024-12-07 08:00] VITALS: TEMP 97.7; O2SAT 94
[2024-12-07] MEDS: CEFUROXIME 500 MG TAB PO SCH (10:12)
[2024-12-07] MEDS ORDERED: CEFU50TA PO (10:46)
[2024-12-07] MEDS ORDERED: BACI1CAP PO (10:46)
[2024-12-07] MEDS ORDERED: METH-855 PO (11:05)
[2024-12-07] MEDS ORDERED: CEFD1CAP9 PO (11:28)
[2024-12-07 12:00] VITALS: BP 144/75; TEMP 98.1; O2SAT 97
== END 2024-12-07 14:07 | disposition home health service (06) | DRG 872 ==
LOC: EDBD 19:17 → M ED 19:17 → M ED INP 19:18 → M MSPAV 12-05 15:53 → OBSVTOIN 12-06 11:15 → M MSPAV 12-06 14:49
PROVIDERS: ADMIT Family Medicine; ATTEND General Practice
DX: A41.9 Sepsis, unspecified organism (principal); N13.2 Hydronephrosis with renal and ureteral calculous obstruction; E87.1 Hypo-osmolality and hyponatremia; N12 Tubulo-interstitial nephritis, not specified as acute or chronic; E78.5 Hyperlipidemia, unspecified; J44.9 Chronic obstructive pulmonary disease, unspecified; K21.9 Gastro-esophageal reflux disease without esophagitis; G35 Multiple sclerosis; E55.9 Vitamin D deficiency, unspecified; G47.00 Insomnia, unspecified; Z87.891 Personal history of nicotine dependence; Z66 Do not resuscitate; Z79.899 Other long term (current) drug therapy; Z88.0 Allergy status to penicillin; Z88.2 Allergy status to sulfonamides; Z99.3 Dependence on wheelchair

== ENCOUNTER 2025-01-10 11:49 | Emergency (ER) | payer MEDICARE, BC ==
[~2025-01-10] VITALS: Ht 160 cm; Wt 51.4 kg
[~2025-01-10 11:49] MED LIST changes: +BACI1CAP PO; +CEFD1CAP9 PO; +CEFU50TA PO; +CVS10CAP7 PO; +METH-855 PO; +VITA100065 PO
[2025-01-10 17:30] VITALS: BP 185/83; TEMP 97.1; O2SAT 97
[2025-01-10] MEDS ORDERED: GABA-1172 PO (18:15)
== END 2025-01-10 18:44 | disposition home or self-care (01) ==
LOC: M ED 11:49
DX: M54.50 Low back pain, unspecified (principal); W19.XXXA Unspecified fall, initial encounter; N20.2 Calculus of kidney with calculus of ureter; M46.97 Unspecified inflammatory spondylopathy, lumbosacral region; M46.96 Unspecified inflammatory spondylopathy, lumbar region; M25.78 Osteophyte, vertebrae; K21.9 Gastro-esophageal reflux disease without esophagitis; G35 Multiple sclerosis; Z79.2 Long term (current) use of antibiotics; Z79.899 Other long term (current) drug therapy; Z79.02 Long term (current) use of antithrombotics/antiplatelets; Z88.0 Allergy status to penicillin; Z88.2 Allergy status to sulfonamides; Y99.9 Unspecified external cause status

== ENCOUNTER → 2025-05-24 | Outpatient (CLI) | payer MEDICARE, BC ==
[~2025-05-24] MED LIST changes: +CVS10CAP8 PO; +GABA-1172 PO; -MELA10CA2 PO
== END ==
LOC: M RAD 11:38
PROVIDERS: ATTEND Urology
DX: N13.2 Hydronephrosis with renal and ureteral calculous obstruction (principal)

== ENCOUNTER 2025-07-31 10:28 | Outpatient (RCR) | payer MEDICARE, BC ==
[~2025-07-31 10:28] MED LIST changes: +METH-1100 PO; -METH-855 PO
== END 2025-08-18 ==
LOC: M PT 10:28
PROVIDERS: ATTEND Family Medicine
DX: G35.D Multiple sclerosis, unspecified (principal)